=== PATIENT | male | born 1975 | race Caucasian/White ===

== ENCOUNTER 2020-07-18 14:44 | Inpatient (IN) | payer SELFPAY ==
[~2020-07-18] VITALS: Ht 182.9 cm; Wt 76.2 kg
[~2020-07-18 14:44] MED LIST: OMEP40CA13 PO; ONDA4TAB11 PO
--- NOTE | 2020-07-18 14:44 | NUR ---
PT BIB SELF C/O ABDOMINAL DISTENSION. PT IS AAOX4, NOT IN RESPIRATORY DISTRESS, HOOKED TO ETL APPLICATION DEVELOPER, KEPT RESTED AND COMFORTABLE. WILL CONTINUE TO MONITOR.
--- NOTE | 2020-07-18 14:50 | NUR ---
AT BEDSIDE FOR EVAL.
--- NOTE | 2020-07-18 15:40 | NUR ---
IV LINE ESTABLISHED BLOOD DRAWN AND SENT TO LAB.
--- NOTE | 2020-07-18 15:46 | NUR ---
COVID SPECIMEN OBTAINED AND SENT TO LAB.
[2020-07-18 16:15] LABS: BASOPHILS # (AUTO) 0.1 /CMM (0.0-0.2); BASOPHILS % (AUTO) 0.7 % (0.0-2.0); EOSINOPHILS % (AUTO) 0.8 % (0.0-6.0); HEMATOCRIT 34 % (39-51); HEMOGLOBIN 11.5 g/dL (13.5-17.5); LYMPHOCYTES # (AUTO) 1.7 /CMM (0.8-4.8); LYMPHOCYTES % (AUTO) 22.6 % (20.0-44.0); MEAN CORPUSCULAR HGB CONC 34 g/dl (31.0-36.0); MEAN CORPUSCULAR VOLUME 118 fL (80-96); MONOCYTES # (AUTO) 0.7 /CMM (0.1-1.30); MONOCYTES % (AUTO) 9.2 % (2.0-12.0); NEUTROPHILS # (AUTO) 5.1 /CMM (1.8-8.9); NEUTROPHILS % (AUTO) 66.7 % (43.0-81.0); PLATELET COUNT (AUTO) 142 /CMM (150-450); RED BLOOD CELL COUNT(AUTO) 2.85 MIL/uL (4.5-6.0); WHITE BLOOD COUNT (AUTO) 7.7 K/uL (4.3-11.0)
[2020-07-18 16:29] LABS: CALCIUM, SERUM 8.1 mg/dL (8.5-10.1); CREATININE 0.9 mg/dL (0.6-1.3)
[2020-07-18 16:39] LABS: ALBUMIN 2.3 g/dL (3.4-5.0); BILIRUBIN,TOTAL 6.3 mg/dL (0.2-1.0); TOTAL PROTEIN, SERUM 7.4 g/dL (6.4-8.2)
[2020-07-18 16:42] LABS: POTASSIUM 2.8 mmol/L (3.5-5.1)
[2020-07-18 16:43] LABS: ALCOHOL, BLOOD < 10 mg/dL (0-0); MAGNESIUM 1.9 mg/dL (1.8-2.4)
[2020-07-18 16:49] LABS: LYMPHOCYTES % (MANUAL) 21 % (16-48); MONOCYTES % (MANUAL) 2 % (0-11.0); NEUTROPHILS % (MANUAL) 77 (42-76)
[2020-07-18] MEDS ORDERED: POTASSIUM CHLORIDE 20 MEQ TAB.PRT.SR PO ONE ×2 (17:09→17:30)
[2020-07-18] MEDS ORDERED: LORAZEPAM 1 MG TABLET PO PRN (17:30)
[2020-07-18] MEDS ORDERED: MAG HYDROX/AL HYDROX/SIMETH 30 ML UDC PO PRN (17:30)
[2020-07-18] MEDS ORDERED: ONDANSETRON HCL/PF 4 MG/2 ML VIAL IVP PRN (17:30)
[2020-07-18] MEDS ORDERED: MORPHINE SULFATE INJ 2 MG/ML DISP.SYRIN IV PRN (17:30)
[2020-07-18] MEDS ORDERED: MAGNESIUM HYDROXIDE 30 ML UDC PO PRN (17:30)
[2020-07-18] MEDS ORDERED: TEMAZEPAM 15 MG CAPSULE PO PRN (17:30)
--- NOTE | 2020-07-18 17:36 | NUR ---
PER DR. PARKS THE PROCEDURE WILL BE DONE TOMORROW MORNING. RN INFORMED THE ORDERING MD.
--- NOTE | 2020-07-18 17:45 | NUR ---
called nursing sup for m/s bed
--- NOTE | 2020-07-18 18:09 | NUR ---
BED 309-1
--- NOTE | 2020-07-18 18:15 | NUR ---
REPORT GIVEN FRANCIS PEREIRA FOR SHARON.
[2020-07-18 19:30] VITALS: BP 111/71
[2020-07-18 20:16] VITALS: BP 111/71
--- NOTE | 2020-07-19 04:21 | NUR ---
slept thru the night Restoril given prior to sleep and was effective noted abd round soft nontender pt states he came in to have a paracentesis done states he stopped drinking 2 weeks ago denies pain ambulates to the bathroom and is steady on his feet pleasent and cooperative
[2020-07-19 06:56] LABS: BASOPHILS # (AUTO) 0.1 /CMM (0.0-0.2); BASOPHILS % (AUTO) 0.9 % (0.0-2.0); EOSINOPHILS % (AUTO) 2.2 % (0.0-6.0); HEMATOCRIT 31 % (39-51); HEMOGLOBIN 10.7 g/dL (13.5-17.5); LYMPHOCYTES # (AUTO) 1.8 /CMM (0.8-4.8); LYMPHOCYTES % (AUTO) 28.5 % (20.0-44.0); MEAN CORPUSCULAR HGB CONC 35 g/dl (31.0-36.0); MEAN CORPUSCULAR VOLUME 118 fL (80-96); MONOCYTES # (AUTO) 0.6 /CMM (0.1-1.30); MONOCYTES % (AUTO) 9.3 % (2.0-12.0); NEUTROPHILS # (AUTO) 3.7 /CMM (1.8-8.9); NEUTROPHILS % (AUTO) 59.1 % (43.0-81.0); PLATELET COUNT (AUTO) 109 /CMM (150-450); RED BLOOD CELL COUNT(AUTO) 2.61 MIL/uL (4.5-6.0); WHITE BLOOD COUNT (AUTO) 6.2 K/uL (4.3-11.0)
--- NOTE | 2020-07-19 07:29 | NUR ---
MS RN OPENING NOTES PATIENT RECEIVED ON BED ALERT AND ORIENTED X 4 WITH NO SINGS OF DISTRESS. ON MODERATE TO HIGH BACK REST. PATIENT AMBULATORY WITH NO ASSITIVE DEVICE, WITH STEADY GAIT. PATIENT WITH SALINE LOCK ON RIGHT AC [id number], COVERED WITH TEGADERM, PATENT AND INTACT. NO COMPLAINTS OF PAIN OR DISCOMFORT. COMFORT MEASURES PROVIDED. NEEDS ATTENDED. ENCOURAGED TO DO DEEP BREATHING EXERCISES. CALL LIGHT WITHIN REACH AT ALL TIMES. WILL MONITOR CLOSELY
[2020-07-19 07:34] LABS: ALBUMIN 1.9 g/dL (3.4-5.0); BILIRUBIN,DIRECT 2.9 mg/dL (0.0-0.2); BILIRUBIN,TOTAL 5.3 mg/dL (0.2-1.0); CALCIUM, SERUM 7.7 mg/dL (8.5-10.1); CREATININE 0.8 mg/dL (0.6-1.3); MAGNESIUM 1.9 mg/dL (1.8-2.4); PHOSPHORUS 3.1 mg/dL (2.5-4.9); TOTAL PROTEIN, SERUM 6.4 g/dL (6.4-8.2)
[2020-07-19 07:36] LABS: POTASSIUM 2.8 mmol/L (3.5-5.1)
--- NOTE | 2020-07-19 07:49 | NUR ---
MS RN NOTES RECEIVED CALL FROM LAB REGARDING CRITICAL VALUE OF POTASSIUM OF 2.8 MD ON THE UNIT AND MADE AWARE.
[2020-07-19 08:00] VITALS: BP 100/58
[2020-07-19] MEDS ORDERED: ALBUMIN 25% 12.5 GM/50 ML BOTTLE IV ONE (08:00)
[2020-07-19] MEDS: POTASSIUM CL. PREMIX PERIPHER. 50 ML IV SCH ×4 (08:13→13:19)
[2020-07-19] MEDS ORDERED: ALBUMIN 25% 12.5 GM in PREMIX 1 EA IV ONE (08:30)
--- NOTE | 2020-07-19 09:53 | NUR ---
MS RN NOTES PARACENTESIS DONE AT BEDSIDE PER DR PARKS. RLQ 4000 MLS OUT. PER FLUIDS SENT TO LAB.
[2020-07-19] MEDS ORDERED: SPIR100T5 PO (10:31)
--- NOTE | 2020-07-19 13:30 | NUR ---
Social Service Consult: visitor services specialist consult requested for alcohol use. Patient is a 45-year-old, male. SW met with the patient at his hospital bed in the med-surg unit. Patient is alert and oriented x4. Patient is calm and resting. Per patients chart, patient was brought in by self on 07/18/2020 for liver failure. Patient stated that he currently lives with his spouse at [address] [place] [address]. [address], [place] [address]; [phone]. SW assessed patients history of substance use and patient stated that he has a history of alcohol use. Patient stated that he stopped drinking 10 days ago after drinking daily since Covid began. Patient stated that he was previously drinking around 1 pint of Vodka throughout the day. Patient denies any history of drug use. SW assessed if patient has a source of income and patient stated that he is currently employed and has an adequate source of income. Patient stated that he has adequate social support from his spouse, Wen Broderick [phone]. SW assessed patients history of mental illness and patient denies any history of mental illness and denies any current thoughts of suicide or homicide. SW discussed discharge plans with the patient. Patient stated that he plans to return to his prior living arrangement at home and will be picked up by his spouse or boss. SW offered the patient substance abuse resources for alcohol. Patient declined the resources, stating that he is able to control his alcohol use independently. PLAN: Patient stated he will be returning to his prior living arrangement. No further SS interventions at this time, however SW will remain available as needed.
--- NOTE | 2020-07-19 15:26 | NUR ---
MS FLATCAR WHACKER NOTES PATIENT DISCHARGED HOME IN MEDICALLY STABLE CONDITION. PATIENT ON ROOM AIR, A/O X4, ABLE TO MAKE NEEDS KNOWN. ALL DISCHARGE DOCUMENTS READY, TEACHING PROVIDED TO PATIENT REGARDING PHYSICIAN DISCHARGE INSTRUCTIONS. PATIENT VERBALIZED UNDERSTANDING. BELONGINGS ACCOUNTED FOR AND FORM SIGNED BY PATIENT. IV ACCESS WAS REMOVED PRIOR TO PATIENT LEAVING THE FLOOR. PATIENT WAS ACCOMPANIED DOWNSTAIRS BY THE RN. PATIENT PICKED UP BY FRIEND IN A PRIVATE CAR.
== END 2020-07-19 15:10 | disposition home or self-care (01) | DRG 432 ==
LOC: ER 14:46 → MED 18:35
PROVIDERS: ADMIT Nurse Practitioner Acute Care; ATTEND Nurse Practitioner Acute Care
PROC: 0W9G3ZZ Drainage of Peritoneal Cavity, Percutaneous Approach (ICD-10-PCS; principal; 2020-07-19)
DX: K70.31 Alcoholic cirrhosis of liver with ascites (principal); E43 Unspecified severe protein-calorie malnutrition; J90 Pleural effusion, not elsewhere classified; K70.11 Alcoholic hepatitis with ascites; E87.6 Hypokalemia; Y90.0 Blood alcohol level of less than 20 mg/100 ml; F10.20 Alcohol dependence, uncomplicated; Z20.822 Contact with and (suspected) exposure to COVID-19; I10 Essential (primary) hypertension; R74.01 Elevation of levels of liver transaminase levels; D64.9 Anemia, unspecified
CPT/HCPCS: 36415; 76942-TC; 80048-TC; 80053-TC; 80076-TC; 82140-TC; 83735-TC; 84100-TC; 84484-TC; 85025-TC; 85610-TC; 87081-TC; 89051-TC; A4216; C9803; G0378; G0480; J3480; J7050; P9047

== ENCOUNTER 2020-10-09 16:39 | Inpatient (IN) | payer BC ==
[~2020-10-09] VITALS: Ht 180.3 cm; Wt 68.5 kg
[~2020-10-09 16:39] MED LIST changes: -OMEP40CA13 PO; -ONDA4TAB11 PO; +SPIR100T5 PO
--- NOTE | 2020-10-09 17:10 | NUR ---
ABDOMINAL DISTENSION WORST X 1 MONTH. PATIENT A/OX4, BREATHING EVEN AND UNLABORED, NO SOB NOTED. NEEDS ATTENDED. KEPT COMFORTABLE.
[2020-10-09 17:42] LABS: BASOPHILS # (AUTO) 0.1 K/uL (0.0-0.2); EOSINOPHILS % (AUTO) 0.2 % (0.0-6.0); HEMOGLOBIN 7.7 g/dL (13.5-17.5); LYMPHOCYTES # (AUTO) 1.8 K/uL (0.8-4.8); MONOCYTES # (AUTO) 0.8 K/uL (0.1-1.30); NEUTROPHILS # (AUTO) 5.5 K/uL (1.8-8.9); PLATELET COUNT (AUTO) 170 K/uL (150-450)
[2020-10-09 17:45] LABS: BASOPHILS % (AUTO) 0.7 % (0.0-2.0); HEMATOCRIT 22 % (39-51); LYMPHOCYTES % (AUTO) 22.1 % (20.0-44.0); MEAN CORPUSCULAR HGB CONC 35 g/dl (31.0-36.0); MEAN CORPUSCULAR VOLUME 121 fL (80-96); MONOCYTES % (AUTO) 9.5 % (2.0-12.0); NEUTROPHILS % (AUTO) 67.5 % (43.0-81.0); WHITE BLOOD COUNT (AUTO) 8.1 K/uL (4.3-11.0)
[2020-10-09 17:47] LABS: RED BLOOD CELL COUNT(AUTO) 1.83 MIL/uL (4.5-6.0)
[2020-10-09 17:59] LABS: ALBUMIN 1.9 g/dL (3.4-5.0); BILIRUBIN,DIRECT 4.5 mg/dL (0.0-0.2); BILIRUBIN,TOTAL 8.4 mg/dL (0.2-1.0); CALCIUM, SERUM 7.8 mg/dL (8.5-10.1); CREATININE 1.1 mg/dL (0.6-1.3); TOTAL PROTEIN, SERUM 8.8 g/dL (6.4-8.2)
[2020-10-09 18:04] LABS: POTASSIUM 2.4 mmol/L (3.5-5.1)
[2020-10-09 18:28] LABS: LYMPHOCYTES % (MANUAL) 20 % (16-48); MONOCYTES % (MANUAL) 10 % (0-11.0); NEUTROPHILS % (MANUAL) 70 (42-76)
[2020-10-09] MEDS ORDERED: POTASSIUM CL. PREMIX PERIPHER. 200 ML ONE (18:29)
[2020-10-09] MEDS ORDERED: POTASSIUM CHLORIDE 20 MEQ TAB.PRT.SR PO ONE ×2 (18:29→18:30)
[2020-10-09] MEDS: POTASSIUM CL. PREMIX PERIPHER. 50 ML IV SCH ×4 (18:51→22:30)
--- NOTE | 2020-10-09 19:35 | NUR ---
POULTRY FARM WORKER OPENING NOTES: RECEIVED PATIENT IN BED AWAKE, BED IN LOW POSITION, CALL LIGHTS WITHIN REACH NO COMPLAIN OF PAIN AND DISCOMFORT A T THIS TIME, ON TELE MONITORING WITH READING SINUS WITH BBB HR-72, ASYMPTOMATIC STAND UP WITH ASSIST, ON BED URINAL, PATIENT KEPT CLEAN AND DRY, ALL NEEDS MET, WILL CONTINUE TO MONITOR.
[2020-10-09] MEDS ORDERED: Magnesium 1GM/D5W 100ML PREMIX 200 ML IV ONE (19:44)
[2020-10-09] MEDS: Magnesium 1GM/D5W 100ML PREMIX 100 ML IV SCH ×2 (20:15→21:13)
--- NOTE | 2020-10-09 20:17 | NUR ---
TOOK OVER PT CARE. PT AAOX4. DIPIKA STATED DURING COVID HE STARTED TO DRINK A LOT AND WAS TOLD TO COME TO THE ED EVERY TIME HIS STOMACH IS BLOATED FOR A PARACENTESIS. DENIES ANY PAIN AND SOB. REMAINS IN BED 9 ON MONITOR AND PULSE OX. AWARE OF NEED FOR ADMISSION AND AWAITING ACCEPTANCE.
--- NOTE | 2020-10-09 20:28 | NUR ---
PT SAT 91% ON ROOM AIR. DENIES HAVING ANY SOB. WILL PLACED PT ON 2L NC.
[2020-10-09] MEDS ORDERED: Z GUARD REMEDY 2 OZ OINT TP PRN (21:00)
[2020-10-09] MEDS ORDERED: ONDANSETRON HCL/PF 4 MG/2 ML VIAL IVP PRN (21:00)
[2020-10-09] MEDS ORDERED: HYDROCODONE/APAP 5/325MG TABLET PO PRN (21:00)
[2020-10-09] MEDS ORDERED: MAG HYDROX/AL HYDROX/SIMETH 30 ML UDC PO PRN (21:00)
[2020-10-09] MEDS ORDERED: ACETAMINOPHEN 325 MG TABLET PO PRN (21:00)
[2020-10-09] MEDS ORDERED: MAGNESIUM HYDROXIDE 30 ML UDC PO PRN (21:00)
--- NOTE | 2020-10-09 23:54 | NUR ---
REPORT GIVEN TO LISA BLANCO FOR SHARON
--- NOTE | 2020-10-10 00:09 | NUR ---
PT TRANSFERED PER ACLS PROTCOL
[2020-10-10] MEDS ORDERED: ALBUTEROL FS 2.5 MG/0.5 ML VIAL.NEB NEB PRN ×3 (00:30)
[2020-10-10] MEDS ORDERED: IPRATROPIUM BROMIDE 14 GM INHALER (or 12.9 GM) IH PRN ×3 (00:30)
--- NOTE | 2020-10-10 00:33 | NUR ---
TLE RN ADMITTING NOTES: RECEIVED PATIENT VIA ALFREDO LIEBERMAN, NO COMPLAIN OF PAIN AND DISCOMFORT, AT THIS TIME, BED IN LOW POSITION, CALL LIGHTS WITHIN REACH, NO SKIN ISSUES NOTED DURING ASSESSMENT, ON TELE MONITORING WITH READING OF SR HR 94, PATIENT PLACE IN BED COMFORTABLY, ALL NEEDS MET WILL CONTINUE TO MONITOR.
[2020-10-10] MEDS ORDERED: FUROSEMIDE 20 MG/2 ML VIAL IV ONE (02:30)
[2020-10-10 05:32] VITALS: BP 105/84
[2020-10-10 06:15] LABS: CALCIUM, SERUM 7.6 mg/dL (8.5-10.1); CREATININE 1.1 mg/dL (0.6-1.3)
[2020-10-10 06:23] LABS: THYROID STIMULATING HORMONE 3.051 uIU/mL (0.358-3.74)
[2020-10-10 06:25] LABS: BASOPHILS % (AUTO) 0.6 % (0.0-2.0); EOSINOPHILS % (AUTO) 0.7 % (0.0-6.0); HEMATOCRIT 21 % (39-51); HEMOGLOBIN 7.2 g/dL (13.5-17.5); LYMPHOCYTES # (AUTO) 1.7 K/uL (0.8-4.8); LYMPHOCYTES % (AUTO) 30.5 % (20.0-44.0); MEAN CORPUSCULAR HGB CONC 35 g/dl (31.0-36.0); MEAN CORPUSCULAR VOLUME 121 fL (80-96); MONOCYTES # (AUTO) 0.6 K/uL (0.1-1.30); MONOCYTES % (AUTO) 11.7 % (2.0-12.0); NEUTROPHILS # (AUTO) 3.1 K/uL (1.8-8.9); NEUTROPHILS % (AUTO) 56.5 % (43.0-81.0); PLATELET COUNT (AUTO) 136 K/uL (150-450); WHITE BLOOD COUNT (AUTO) 5.5 K/uL (4.3-11.0)
--- NOTE | 2020-10-10 06:30 | NUR ---
RN NOTES 2ND BAG OF FFP FINISHED, VITAL SIGN STABLE, PATIENT DENIES ANY REACTION, DENIES PAIN, NO SOB, MORNING CARE RENDERED, CALL LIGHT WITHIN LEONCIO JAIMES, PT. NEEDS ATTENDED Addendum: 10/11/20 at 0641 by NAT VILLASENOR RN RIGHT DATE TIME 10/11/20 AT 0630
[2020-10-10] MEDS ORDERED: IPRATROPIUM NEB FS 0.5 MG/2.5 ML AMPUL.NEB IH PRN (07:00)
[2020-10-10 07:10] LABS: POTASSIUM 2.7 mmol/L (3.5-5.1)
--- NOTE | 2020-10-10 07:30 | NUR ---
TOUR GUIDE OPENING NOTES PT AWAKE IN BED, A/O X4, ABLE TO VERBALIZE NEEDS. DENIES ANY PAIN OR DISCOMFORT AT THIS TIME. NOTED IV ACCESS TO R-HAND #20 AND R-FA #20, BOTH INTACT AND PATENT AND FLUSHES WELL. ON EXTERNAL THERMAL SPRAY OPERATOR CURRENTLY READING ST @106BPM. PT DENIES ANY CARDIAC DISTRESS. SAFETY MEASURES MAINTAINED: BED IN LOWEST LOCKED POSITION, SR UP X2, CALL LIGHT AND BEDSIDE TABLE WITH EASY REACH. WILL CONTINUE TO MONITOR.
--- NOTE | 2020-10-10 07:43 | NUR ---
DECK ENGINEER CLOSING NOTES: PATIENT IS AWAKE IN BED, BED IN LOW POSITION, CALL LIGHTS WITHIN REACH, NO COMPLAIN OF PAIN AND DISCOMFORT AT THIS TIME, A/O X4 NO SOB NOTED, ALL NEEDS ATTENDED, KEPT CLEAN AND DRY, ENDORSE AUDERY INCOMING SHIFT.
[2020-10-10 08:00] VITALS: BP 96/59
--- NOTE | 2020-10-10 08:00 | NUR ---
RN NOTES RECEIVED CALL FROM ESTIMATING ENGINEER [facility] FOR PT CRITICAL LAB RESULT: POTASSIUM 2.7 AND LOW PHOSPHORUS 1.0. REPORTED TO DR. MARMOLEJO WITH ORDER TO GIVE POTASSIUM PHOSPHATE 15MMOL. ORDER CARRIED OUT.
[2020-10-10] MEDS: SPIRONOLACTONE 25 MG TABLET PO SCH (08:16)
[2020-10-10] MEDS: RIFAXIMIN 550 MG TABLET PO SCH ×2 (08:16→17:07)
[2020-10-10] MEDS: PANTOPRAZOLE 40 MG VIAL IV SCH (08:17)
[2020-10-10] MEDS ORDERED: ALBUMIN 25% 25 GM in PREMIX 1 EA IV SCH (09:00)
[2020-10-10] MEDS: POTASSIUM PHOSPHATE MM 7.5 MMOL in IV NS 0.9% 100 ML IV SCH ×4 (09:02→18:47)
--- NOTE | 2020-10-10 10:00 | NUR ---
RN NOTE SEEN AND EXAMINED BY DR. MARMOLEJO. MD WILL PUT IN ORDERS FOR PT.
--- NOTE | 2020-10-10 10:45 | NUR ---
RN NOTE CALLED ULTRASOUND DEPT RE PT FOR PARACENTESIS TODAY PER DR. MARMOLEJO. SPOKE WITH FIREWALL ENGINEER ERIC, PT'S INR IS HIGH 2.36. MADE AWARE WITH ORDER TO CANCEL PARACENTESIS TODAY, WITH ORDERS VIT.K INJ AND FFP TODAY. ORDERS NOTED.
[2020-10-10] MEDS ORDERED: PHYTONADIONE INJ 10 MG/1 ML AMPUL IM STA (11:01)
--- NOTE | 2020-10-10 11:49 | NUR ---
RN NOTE COLLECTED STOOL SPECIMEN FOR: OVA & PARASITE EXAM, CULTURE, AND C-DIFF. SPECIMEN BROUGHT TO LAB. Addendum: 10/10/20 at 1153 by ELLIE MANI RN DOCUMENTED ON WRONG PT
--- NOTE | 2020-10-10 14:53 | NUR ---
INFORMED RN MALENA INR IS ELEVATED FOR US PARACENTESIS TODAY, RN WILL ORDER NEW INR TOMORROW.
--- NOTE | 2020-10-10 15:55 | NUR ---
RECEIVED CALL FROM BLOOD BANK SAYING THEY HAVE NON-TYPE SPECIFIC PLASMA. AVAILABLE IS A-NEG PLASMA, PT IS O-NEG. INFORMED DR. MARMOLEJO IF HE IS OK WITH NON-TYPE SPECIFIC PLASMA. SAID HE IS NOT OK WITH IT. SPOKE TO HEMA @BLOOD BANK AND THEY WILL OBTAIN IT FROM [facility]. AWARE AND IS OK WITH IT.
[2020-10-10 16:00] VITALS: BP 105/58
[2020-10-10 16:25] LABS: HEMOGLOBIN 6.8 g/dL (13.5-17.5)
--- NOTE | 2020-10-10 16:29 | NUR ---
RECEIVED CRITICAL LAB RESULT OF H&H 6.8 AND HCT 20. CALLED TO DR. MARMOLEJO AND AWAITING CALL BACK.
[2020-10-10 16:44] LABS: ALBUMIN 1.6 g/dL (3.4-5.0); BILIRUBIN,TOTAL 5.4 mg/dL (0.2-1.0); CALCIUM, SERUM 7.4 mg/dL (8.5-10.1); TOTAL PROTEIN, SERUM 7.6 g/dL (6.4-8.2)
[2020-10-10] MEDS: POTASSIUM CL. PREMIX PERIPHER. 50 ML IV SCH ×2 (18:09→19:22)
--- NOTE | 2020-10-10 18:45 | NUR ---
RN NOTES DR. MARMOLEJO ORDERED PRBC X1 STAT. ORDER NOTED AND WILL ENDORSE TO NEXT SHIFT.
--- NOTE | 2020-10-10 19:12 | NUR ---
LICENSED LOAN OFFICER CLOSING NOTES PT IN BED, A/O X4, ABLE TO VERBALIZE NEEDS. ON O2 @2LPM VIA N/C AND TOLERATING WELL. IV ACCESS TO R-FA #20 AND R-HAND #20 INTACT, PATENT AND FLUSHES WELL. ON EXTERNAL COMMUNICATIONS REPRESENTATIVE CURRENTLY READING ST 107. PT DENIES ANY CARDIAC DISTRESS. SAFETY MEASURES MAINTAINED: BED IN LOWEST LOCKED POSITION, SR UP X2, CALL LIGHT AND BEDSIDE TABLE WITHIN EASY REACH. PT'S AT BEDSIDE.
[2020-10-10 20:00] VITALS: BP 107/70
--- NOTE | 2020-10-10 20:45 | NUR ---
FRANCIS GRAY RECEIVED PATIENT AWAKE ON HIS BED, GIRLFRIEND AT BEDSIDE,A/OX4 SR ON TELE MONITOR HR-89. NOTICED ABDOMINAL DISTENDED, DENEIS PAIN NO SOB, CALL LIGHT WITHIN REACH, [id number], WILL CONTINUE TO MONIRO
[2020-10-10 23:10] VITALS: BP 104/67
--- NOTE | 2020-10-10 23:13 | NUR ---
RN NOTES PRBC STARTED, VITAL SIGN STABLE, WILL CONTINUE TO MONITOR
[2020-10-10 23:25] VITALS: BP 107/67
[2020-10-11] VITALS (14 sets, daily range): BP systolic 95–106; BP diastolic 53–66
--- NOTE | 2020-10-11 02:10 | NUR ---
RN NOTES FFP STARTED, WILL CONTINUE TO MONITOR
--- NOTE | 2020-10-11 02:30 | NUR ---
RN NOTES NO REACTION WAS NOTED FROM FFP, WILL CONTINUE TO MONITOR
--- NOTE | 2020-10-11 04:05 | NUR ---
RN NOTES FFP WAS FINISHED, V/S STABLE
--- NOTE | 2020-10-11 06:30 | NUR ---
RN NOTES 2ND BAG OF FFP FINISHED, VITAL SIGN STABLE, PATIENT DENIES ANY REACTION, DENIES PAIN, NO SOB, MORNING CARE RENDERED, CALL LIGHT WITHIN DELILAH [id number], PT. NEEDS ATTENDED
--- NOTE | 2020-10-11 07:30 | NUR ---
BOTTLE LINE WORKER OPENING NOTES PATIENT AWAKE IN BED, AWAKE AND ORIENTED, ABLE TO VERBALIZE NEEDS WITH NO COMPLAINT OF PAIN OR ANY DISCOMFORT AT THIS TIME. WITH IV ACCESS AT R -HAND #20 AND R-FA #20, BOTH INTACT AND PATENT AND FLUSHES WELL. ON EXTERNAL SURGICAL NURSE PRACTITIONER CURRENTLY READING NSR AT 96 BPM. NOT IN CARDIAC DISTRESS. SAFETY MEASURES MAINTAINED. BED IN LOWEST LOCKED POSITION, SR UP X2, CALL LIGHT WITHIN REACH. WILL CONTINUE TO MONITOR.
[2020-10-11] MEDS ORDERED: FUROSEMIDE 40 MG TABLET PO SCH (09:00)
[2020-10-11] MEDS: POTASSIUM PHOSPHATE MM 7.5 MMOL in IV NS 0.9% 100 ML IV SCH ×2 (09:24→12:44)
[2020-10-11] MEDS: PANTOPRAZOLE 40 MG VIAL IV SCH (09:25)
[2020-10-11] MEDS: RIFAXIMIN 550 MG TABLET PO SCH ×2 (09:25→17:21)
[2020-10-11] MEDS: SPIRONOLACTONE 25 MG TABLET PO SCH (09:25)
[2020-10-11 11:26] LABS: ALBUMIN 1.7 g/dL (3.4-5.0); BILIRUBIN,TOTAL 6.4 mg/dL (0.2-1.0); CALCIUM, SERUM 7.6 mg/dL (8.5-10.1); CREATININE 0.9 mg/dL (0.6-1.3); TOTAL PROTEIN, SERUM 7.5 g/dL (6.4-8.2)
[2020-10-11 11:27] LABS: HEMOGLOBIN 7.2 g/dL (13.5-17.5)
[2020-10-11 11:57] LABS: IRON, SERUM 82 ug/dl (50-175); TOTAL IRON BINDING CAPACITY 119 ug/dl (250-450)
[2020-10-11] MEDS ORDERED: PHYTONADIONE INJ 10 MG/1 ML AMPUL SQ STA (12:11)
--- NOTE | 2020-10-11 12:34 | NUR ---
CONSTRUCTION FOREMAN NOTES DR. KOHLI INFORMED OF PT'S LATEST LABS, ORDERED TO TRANSFUSE 2 MORE PLASMAS.
[2020-10-11 12:53] LABS: FERRITIN 1612 ng/mL (8-388)
[2020-10-11] MEDS: ALBUMIN 25% 25 GM in PREMIX 1 EA IV SCH ×2 (14:00→19:27)
[2020-10-11] MEDS ORDERED: FURO40TA5 PO (14:58)
[2020-10-11] MEDS ORDERED: PANT40TA2 PO (14:58)
[2020-10-11] MEDS ORDERED: SPIR100T5 PO (14:58)
[2020-10-11 16:33] LABS: ALBUMIN 1.9 g/dL (3.4-5.0); BILIRUBIN,TOTAL 6.9 mg/dL (0.2-1.0); CALCIUM, SERUM 7.6 mg/dL (8.5-10.1); POTASSIUM 3.4 mmol/L (3.5-5.1); TOTAL PROTEIN, SERUM 7.5 g/dL (6.4-8.2)
--- NOTE | 2020-10-11 16:41 | NUR ---
POWDERED SUGAR PULVERIZER OPERATOR NOTES RECEIVED RESULT OF LATEST H/H 7., RELAYED TO DR. AQUINO, ORDERED TO GIVE 1 UNIT PRBC BEFORE DISCHARGE., PT INFORMED AND AGREED WITH PLAN, NO BLEEDING NOTED, PT STATES THAT HE REALLY WANTS TO GO HOME AFTER TRANSFUSION AND HE FEELS OK.
--- NOTE | 2020-10-11 17:30 | NUR ---
MANAGER MUSIC OPENING NOTES: RECEIVED PATIENT AWAKE IN BED, BED IN LOW POSITION, CALL LIGHTS WITHIN REACH, NO COMPLAIN OF PAIN AND DISCOMFORT, NO SOB OR ANY RESP. DISTRESS NOTED, ON TELE MONITORING, NO CHANGES HAS BEEN OBSERVED. PATIENT DUE TO BE GIVEN WITH 1 PRBC, KEPT CLEAN AND DRY, WILL CONTINUE TO MONITOR.
--- NOTE | 2020-10-11 19:01 | NUR ---
METAL CRAFTS TEACHER NOTES PT IN BED, RESTING, DENIES PAIN OR ANY DISCOMFORT, RESPIRATIONS NORMAL, STATES HE IS FEELING OK TO GO HOME, ALBUMIN GIVEN ORDERED, PT TO BE DISCHARGED AFTER 1 UNIT PRBC, PM MEDS GIVEN, TOLERATES CURRENT DIET, ALL NEEDS ATTENDED.
[2020-10-12] VITALS: BP 100/65
--- NOTE | 2020-10-12 01:03 | NUR ---
RN NOTES: TRANSFUSES 1 BAG LRBC WITH NO S/E NOTED
--- NOTE | 2020-10-12 01:53 | NUR ---
SENIOR PRODUCT MANAGERMEDICAL ASSOCIATE NOTE: PATIENT WENTON SCHEDULE D/C TO HOME AFTER BLOOD TRANSFUSIION , TRANSPORTATION WAS VIA UBER, WAS MADE AWARE ON STABLE CONDITION, D/C PAPER GIVEN, EXPPLAINED, ALL INVENTORIES GIVEN AND SIGNED WENT DOWN TO LOBBY AT 0135 AM ON STABLE CONDITION.
[2020-10-12] MEDS ORDERED: PANTOPRAZOLE 40 MG TABLET.DR PO SCH (07:30)
== END 2020-10-12 01:25 | disposition home or self-care (01) | DRG 432 ==
LOC: ER 16:40 → TELE 23:50
PROVIDERS: ADMIT Registered Nurse; ATTEND Internal Medicine
PROC: 30233N1 Transfusion of Nonautologous Red Blood Cells into Peripheral Vein, Percutaneous Approach (ICD-10-PCS; 2020-10-10)
PROC: 0W9G3ZZ Drainage of Peritoneal Cavity, Percutaneous Approach (ICD-10-PCS; principal; 2020-10-11)
PROC: 30233K1 Transfusion of Nonautologous Frozen Plasma into Peripheral Vein, Percutaneous Approach (ICD-10-PCS; 2020-10-11)
DX: K70.31 Alcoholic cirrhosis of liver with ascites (principal); E43 Unspecified severe protein-calorie malnutrition; J91.8 Pleural effusion in other conditions classified elsewhere; D68.69 Other thrombophilia; E83.42 Hypomagnesemia; E87.6 Hypokalemia; E88.09 Other disorders of plasma-protein metabolism, not elsewhere classified; Z68.21 Body mass index [BMI] 21.0-21.9, adult; D69.6 Thrombocytopenia, unspecified; D63.8 Anemia in other chronic diseases classified elsewhere; Z20.822 Contact with and (suspected) exposure to COVID-19; F10.21 Alcohol dependence, in remission
CPT/HCPCS: 36415; 71045-TC; 76705-TC; 76942-TC; 80048-TC; 80053-TC; 80061-TC; 80076-TC; 82140-TC; 82728-TC; 83540-TC; 83690-TC; 83735-TC; 84100-TC; 84443-TC; 85025-TC; 85027-TC; 85610-TC; 85730-TC; 86850-TC; 87081-TC; 88108-TC; 88305-TC; A4216; C9113; C9803; G0378; J1940; J3430; J3475; J3480; J3490; J7030; J7050; P9016; P9017; P9047

== ENCOUNTER 2020-11-23 19:39 | Inpatient (IN) | payer BC ==
[~2020-11-23] VITALS: Ht 182.9 cm; Wt 75.3 kg
[~2020-11-23 19:39] MED LIST changes: +FURO40TA5 PO; +PANT40TA2 PO
--- NOTE | 2020-11-23 19:50 | NUR ---
PT PROVIDED WITH WARM BLANKETS.
--- NOTE | 2020-11-23 19:50 | NUR ---
PT [id number] FROM HOME WITH C/O "MY L EYE WAS SEEING LORA, NOW TODAY IT IS ALL BLACK AND I CAN'T SEE ANYTHING", ALSO DRY MOUTH, DENIES PAIN." PT SKIN PRESENTS JAUNDICE. ALERT AND ORIENTED X3 WITH NON LABORED BREATHING.
--- NOTE | 2020-11-23 20:49 | NUR ---
Ryan steward in [facility] - 11/23/20 at 2100 by DAISY ULTRASOUND @ BEDSIDE.
[2020-11-23 21:00] LABS: BASOPHILS # (AUTO) 0.1 K/uL (0.0-0.2); BASOPHILS % (AUTO) 0.5 % (0.0-2.0); EOSINOPHILS % (AUTO) 0.3 % (0.0-6.0); LYMPHOCYTES # (AUTO) 1.1 K/uL (0.8-4.8); LYMPHOCYTES % (AUTO) 10.2 % (20.0-44.0); MEAN CORPUSCULAR HGB CONC 33 g/dl (31.0-36.0); MEAN CORPUSCULAR VOLUME 140 fL (80-96); MONOCYTES % (AUTO) 9.2 % (2.0-12.0); NEUTROPHILS % (AUTO) 79.8 % (43.0-81.0); PLATELET COUNT (AUTO) 171 K/uL (150-450); WHITE BLOOD COUNT (AUTO) 11.2 K/uL (4.3-11.0)
[2020-11-23 21:01] LABS: RED BLOOD CELL COUNT(AUTO) 0.86 MIL/uL (4.5-6.0)
[2020-11-23 21:02] LABS: HEMATOCRIT 12 % (39-51)
[2020-11-23 21:05] LABS: BILIRUBIN,DIRECT 13.8 mg/dL (0.0-0.2); BILIRUBIN,TOTAL 21.5 mg/dL (0.2-1.0); CALCIUM, SERUM 8.7 mg/dL (8.5-10.1); CREATININE 3.2 mg/dL (0.6-1.3); TOTAL PROTEIN, SERUM 8.3 g/dL (6.4-8.2)
[2020-11-23 21:07] LABS: ALBUMIN 1.4 g/dL (3.4-5.0); POTASSIUM 2.6 mmol/L (3.5-5.1)
--- NOTE | 2020-11-23 21:07 | NUR ---
POTASSIUM: 2.6 ALBUMIN 1.4 MD NOTIFIED.
[2020-11-23 21:08] LABS: THYROID STIMULATING HORMONE 2.732 uIU/mL (0.358-3.74)
--- NOTE | 2020-11-23 21:18 | NUR ---
called the medical center. longwall shearer operator was paged
--- NOTE | 2020-11-23 21:20 | NUR ---
[facility] ( SIGNIFICANT OTHER) [phone]
[2020-11-23] MEDS ORDERED: IV PREMIX D5 1/2NS + KCL 1,000 ML IV ONE ×2 (21:28→21:30)
--- NOTE | 2020-11-23 21:30 | NUR ---
MRSA SWAB COLLECTED AND SENT TO LAB. PATIENT'S BELONGINGS LIST DONE.
[2020-11-23 21:47] LABS: BAND % (MANUAL) 2 % (0.0-5.0); LYMPHOCYTES % (MANUAL) 8 % (16-48); MONOCYTES % (MANUAL) 6 % (0-11.0); NEUTROPHILS % (MANUAL) 83 (42-76); REACTIVE LYMPHOCYTES 1 % (0-0)
--- NOTE | 2020-11-23 22:56 | NUR ---
PATIENT GOING TO CT.
[2020-11-23] MEDS ORDERED: ACETAMINOPHEN 325 MG TABLET PO PRN (23:00)
[2020-11-23] MEDS ORDERED: ZOLPIDEM TARTRATE 5 MG TABLET PO PRN (23:00)
[2020-11-23] MEDS ORDERED: Z GUARD REMEDY 2 OZ OINT TP PRN (23:00)
--- NOTE | 2020-11-23 23:10 | NUR ---
returned from ct
[2020-11-24] VITALS (21 sets, daily range): BP systolic 86–114; BP diastolic 45–69
[2020-11-24] MEDS ORDERED: ONDANSETRON HCL/PF 4 MG/2 ML VIAL ONE (02:51)
[2020-11-24] MEDS: ONDANSETRON HCL/PF 4 MG/2 ML VIAL IVP PRN ×2 (03:00→15:07)
[2020-11-24] MEDS: IV NS 0.9% 1,000 ML IV PRN ×2 (03:00→21:02)
[2020-11-24 05:39] LABS: BASOPHILS # (AUTO) 0.1 K/uL (0.0-0.2); EOSINOPHILS % (AUTO) 0.7 % (0.0-6.0); MONOCYTES # (AUTO) 0.9 K/uL (0.1-1.30); WHITE BLOOD COUNT (AUTO) 10.4 K/uL (4.3-11.0)
[2020-11-24 05:42] LABS: BASOPHILS % (AUTO) 0.7 % (0.0-2.0); LYMPHOCYTES % (AUTO) 9.3 % (20.0-44.0); MEAN CORPUSCULAR HGB CONC 35 g/dl (31.0-36.0); MEAN CORPUSCULAR VOLUME 119 fL (80-96); MONOCYTES % (AUTO) 8.6 % (2.0-12.0); NEUTROPHILS # (AUTO) 8.4 K/uL (1.8-8.9); NEUTROPHILS % (AUTO) 80.7 % (43.0-81.0); PLATELET COUNT (AUTO) 158 K/uL (150-450)
[2020-11-24 05:43] LABS: RED BLOOD CELL COUNT(AUTO) 1.15 MIL/uL (4.5-6.0)
[2020-11-24 05:45] LABS: HEMATOCRIT 14 % (39-51); HEMOGLOBIN 4.8 g/dL (13.5-17.5)
--- NOTE | 2020-11-24 05:45 | NUR ---
HEMOGLOBIN 4.8 HEMATOCRIT: 14 MD NOTIFIED
[2020-11-24 05:47] LABS: ALANINE AMINOTRANSFERASE 14 U/L (12-78); ALKALINE PHOSPHATASE 67 U/L (46-116); ASPARTATE AMINOTRANSFERASE 31 U/L (15-37); BILIRUBIN,TOTAL 19.4 mg/dL (0.2-1.0); CARBON DIOXIDE 32 mmol/L (21-32); CHLORIDE 92 mmol/L (98-107); GLUCOSE 123 mg/dL (74-106); PHOSPHORUS 3.4 mg/dL (2.5-4.9); SODIUM SERUM 132 mmol/L (136-145); TOTAL PROTEIN, SERUM 7.4 g/dL (6.4-8.2); UREA NITROGEN, BLOOD 51 mg/dL (7-18)
[2020-11-24 05:56] LABS: MAGNESIUM 2.1 mg/dL (1.8-2.4)
[2020-11-24 05:58] LABS: ALBUMIN 1.3 g/dL (3.4-5.0); POTASSIUM 2.8 mmol/L (3.5-5.1)
[2020-11-24 06:38] LABS: BAND % (MANUAL) 1 % (0.0-5.0); LYMPHOCYTES % (MANUAL) 8 % (16-48); METAMYELOCYTES % 1 % (0-0); MONOCYTES % (MANUAL) 8 % (0-11.0); MYELOCYTES % 1 % (0-0); NEUTROPHILS % (MANUAL) 81 (42-76)
[2020-11-24 06:39] LABS: HDL CHOLESTEROL 14 mg/dL (40-60); LDL 20 mg/dL (0-99); THYROID STIMULATING HORMONE 2.067 uIU/mL (0.358-3.74); TRIGLYCERIDES 54 mg/dL (30-150)
--- NOTE | 2020-11-24 06:44 | NUR ---
attempted to give report, request denied.
--- NOTE | 2020-11-24 07:17 | NUR ---
report given to damián Monroy
[2020-11-24 07:48] LABS: CHOLESTEROL < 50 mg/dL (<200)
--- NOTE | 2020-11-24 08:15 | NUR ---
TELE ADMISSION NOTES RECEIVED ADMISSION FROM ER BROUGHT BY IDALIA, ER NURSE AND ONE ER STAFF MEMBER. PATIENT IS ALERT AND ORIENTED X 2-3, VERY WEAK WITH JAUNDICE APPEARANCE. BREATHING IS EVEN AND UNLABORED. NO SOB. NO C/O PAIN AT THIS TIME. ORIENTED PATIENT TO UNIT, STAFF AND CALL LIGHT. IV ACCESS LAC#18 AND RAC#18 PATENT INTACT. ORDERS RECEIVED FROM MD AND WILL CARRY OUT. SAFETY MEASURES IN PLACE WITH BED LOCKED AT LOW POSITION AND SIDE RAILS UP X2. WILL CONTINUE TO MONITOR PATIENT THROUGHOUT SHIFT.
--- NOTE | 2020-11-24 08:16 | NUR ---
The patient is transfered to room 321 in stable condition and per ACLS policy.
[2020-11-24 08:33] LABS: IRON, SERUM 111 ug/dl (50-175); TOTAL IRON BINDING CAPACITY 109 ug/dl (250-450)
[2020-11-24] MEDS: FOLIC ACID 1 MG TABLET PO SCH (08:35)
[2020-11-24] MEDS: THIAMINE HCL 100 MG TABLET PO SCH (08:35)
[2020-11-24] MEDS ORDERED: FAMOTIDINE (20 MG) 20 MG TABLET PO SCH (09:00)
[2020-11-24] MEDS ORDERED: SPIR100T PO (10:09)
[2020-11-24] MEDS ORDERED: PANT40TA2 PO (10:09)
[2020-11-24] MEDS ORDERED: POTA99TA14 PO (10:09)
[2020-11-24] MEDS ORDERED: CHOL100062 PO (10:09)
[2020-11-24] MEDS ORDERED: FURO-144 PO (10:09)
[2020-11-24] MEDS ORDERED: PANTOPRAZOLE 40 MG VIAL IV SCH (11:30)
[2020-11-24] MEDS: POTASSIUM CL. PREMIX PERIPHER. 50 ML IV SCH ×6 (11:30→16:09)
--- NOTE | 2020-11-24 11:55 | NUR ---
INSPECTOR WIRE PRODUCTS NOTES BLOOD TRANSFUSION 1 OF 2 STARTED
[2020-11-24] MEDS ORDERED: OCTREOTIDE 50 MCG in IV NS 0.9% 50 ML IJ ONE (14:30)
[2020-11-24] MEDS: OCTREOTIDE 1,250 MCG in IV NS 0.9% 247.5 ML IV PRN ×2 (15:18→20:33)
--- NOTE | 2020-11-24 15:53 | NUR ---
BUSINESS AREA MANAGER NOTES 2 OUT OF 2 PRBC STARTED AT THIS TIME. PATIENT HAD ONE EPISODE OF VOMIT AFTER PREVIOUS BLOOD TRANSFUSION ENDED. ZOFRAN GIVEN, SYMPTOMS IMPROVED.
[2020-11-24] MEDS: PANTOPRAZOLE 40 MG VIAL IV SCH (16:44)
--- NOTE | 2020-11-24 18:11 | NUR ---
MEDICAL STAFF CREDENTIALING COORDINATORCURRICULUM DEVELOPMENT COORDINATOR NOTES TRANSFERRED PATIENT TO ICU. PATIENT VOMITED DURING THRID TRANSFUSION (SINCE ADMISSION). PATIENT WEAK BUT RESPONDS TO VERBAL STIMULI AND TOUCH. SANDOSTATIN AT 50 ML/HR INFUSING. GAVE REPORT TO GABRIELA, CHARGE NURSE ICU.
--- NOTE | 2020-11-24 18:15 | NUR ---
MANAGER ASSET MANAGEMENT RECEIVED PT FROM TELE BY MIO WITH MONITOR. PT AROUSEABLE TO NAME, WEAK. PRBC (3RD SINCE ADMISSION) INFUSING. SANDOSTATIN AT 50 ML/HR INFUSING. PT SCHEDULED FOR EMERGENCY EGD.
[2020-11-24] MEDS: PIPERACILLIN /TAZOBACTAM 2.25 G in IV D5W 50 ML IV SCH (18:16)
--- NOTE | 2020-11-24 18:50 | NUR ---
FRAME TENDER PT TO OR FOR EGD. EMERGENCY CONSENTS. NO FAMILY AVAILABLE AT THIS TIME. PT ENCEPHALOPATHIC. COMPLETED TRANSFUSIONS. AWAITING FOLLOW UP LABS.
[2020-11-24 19:02] LABS: BASOPHILS % (AUTO) 0.5 % (0.0-2.0); EOSINOPHILS % (AUTO) 0.3 % (0.0-6.0); LYMPHOCYTES # (AUTO) 0.8 K/uL (0.8-4.8); LYMPHOCYTES % (AUTO) 8.7 % (20.0-44.0); MEAN CORPUSCULAR HGB CONC 35 g/dl (31.0-36.0); MEAN CORPUSCULAR VOLUME 110 fL (80-96); MONOCYTES # (AUTO) 0.7 K/uL (0.1-1.30); MONOCYTES % (AUTO) 7.6 % (2.0-12.0); NEUTROPHILS # (AUTO) 7.3 K/uL (1.8-8.9); NEUTROPHILS % (AUTO) 82.9 % (43.0-81.0); PLATELET COUNT (AUTO) 144 K/uL (150-450); WHITE BLOOD COUNT (AUTO) 8.8 K/uL (4.3-11.0)
[2020-11-24] MEDS ORDERED: SUCCINYLCHOLINE CHLORIDE 20 MG/ML VIAL ONE (19:11)
[2020-11-24 19:15] LABS: HEMOGLOBIN 6.6 g/dL (13.5-17.5)
[2020-11-24 19:16] LABS: HEMATOCRIT 19 % (39-51)
[2020-11-24] MEDS ORDERED: CEFTRIAXONE 1 G VIAL IM SCH (19:30)
[2020-11-24 19:33] LABS: BAND % (MANUAL) 1 % (0.0-5.0); LYMPHOCYTES % (MANUAL) 10 % (16-48); MONOCYTES % (MANUAL) 4 % (0-11.0); NEUTROPHILS % (MANUAL) 85 (42-76)
--- NOTE | 2020-11-24 19:58 | NUR ---
RN NOTES, PATIENT RETURNED FROM EDG PROCEDURE, STILL IN RECUPERATION, OPERATION ROOM NURSE AND ANESTHESIOLOGIST IN THE ROOM WITH PATIENT.
--- NOTE | 2020-11-24 20:20 | NUR ---
RN NOTES, WITH ORDER FROM DR CORNEJO TO CONTINUE PREVIOUS MEDICATIONS.
[2020-11-24] MEDS ORDERED: OCTREOTIDE 500 MCG/ML VIAL ONE (20:23)
--- NOTE | 2020-11-24 20:29 | NUR ---
rn notes, received report from Kezia Rn nurse, patient on simple mask at 5lpm, bp 90s at this time, will call md for orders since hg still 6.6, will cont to monitor closely, s/p EDG with banding x7, no active bleeding noted.
--- NOTE | 2020-11-24 20:50 | NUR ---
RN NOTES, INFORMED MOJGAN FRIAS DNP THAT THE LAST RESULT FOR H&H IS 6.6 AND HE REPLIED WITH ORDER TO TRANSFUSE ANOTHER UNIT OF PRBC, ORDER NOTED AND CARRIED OUT, NOTED ALSO SBP 80-90 AND HE STATED THAT BLOOD WILL IMPROVE AND LONG MAP IS >65, WILL BE GOOD, AWAITING FOR BLOOD FROM LAB. WILL INFUSE ORDERED.
--- NOTE | 2020-11-24 20:59 | NUR ---
RN NOTES, VERIFIED ORDER FOR IM CEFTRIAXONE WITH DR VARGAS AND PER HIM ADMINISTER IV, ORDER NOTED AND CARRIED OUT. Addendum: 11/25/20 at 0034 by ERIC DEUTSCH RN WRONG ENTRY
--- NOTE | 2020-11-24 20:59 | NUR ---
RN NOTES, VERIFIED ORDER FOR IM CEFTRIAXONE WITH DR CORNEJO AND PER HIM ADMINISTER IV, ORDER NOTED AND CARRIED OUT.
[2020-11-24] MEDS ORDERED: CEFTRIAXONE 1 G VIAL ONE (21:16)
[2020-11-24] MEDS: CEFTRIAXONE 1 G in IV D5W 50 ML IV SCH (21:19)
[2020-11-25] VITALS (73 sets, daily range): BP systolic 79–113; BP diastolic 45–71
[2020-11-25] MEDS: PIPERACILLIN /TAZOBACTAM 2.25 G in IV D5W 50 ML IV SCH ×3 (00:09→12:02)
--- NOTE | 2020-11-25 01:50 | NUR ---
RN NOTES, DONE WITH THE ADMINISTRATION OF BLOOD, PATIENT TOLERATED WELL, NO S/S OF ANY ALLERGIC REACTION OR ABNORMALITY, BLOOD PRESSURE CONTINUE IN 90S AT THIS TIME, BUT KEEPING THE MAP >65, WILL CONTINUE TO MONITOR CLOSELY.
--- NOTE | 2020-11-25 02:26 | NUR ---
RN NOTES, SBP IN MID 80S INFORMED MOJGAN FRIAS DNP AND REPLIED WITH ORDER FOR BOLUS NS 0.9%500ML ONCE NOW, TO KEEP MAP >65, ORDER NOTED AND CARRIED OUT.
[2020-11-25] MEDS ORDERED: IV NS 0.9% 500 ML IV ONE (02:30)
[2020-11-25 03:26] LABS: BASOPHILS # (AUTO) 0.1 K/uL (0.0-0.2); BASOPHILS % (AUTO) 0.7 % (0.0-2.0); EOSINOPHILS % (AUTO) 0.1 % (0.0-6.0); LYMPHOCYTES # (AUTO) 0.7 K/uL (0.8-4.8); LYMPHOCYTES % (AUTO) 7.1 % (20.0-44.0); MEAN CORPUSCULAR HGB CONC 35 g/dl (31.0-36.0); MEAN CORPUSCULAR VOLUME 109 fL (80-96); MONOCYTES # (AUTO) 0.8 K/uL (0.1-1.30); NEUTROPHILS # (AUTO) 8.1 K/uL (1.8-8.9); NEUTROPHILS % (AUTO) 84.1 % (43.0-81.0); PLATELET COUNT (AUTO) 120 K/uL (150-450); WHITE BLOOD COUNT (AUTO) 9.6 K/uL (4.3-11.0)
[2020-11-25 03:35] LABS: CALCIUM, SERUM 7.4 mg/dL (8.5-10.1); CREATININE 3.1 mg/dL (0.6-1.3); PHOSPHORUS 4.2 mg/dL (2.5-4.9); POTASSIUM 3.8 mmol/L (3.5-5.1)
[2020-11-25] MEDS ORDERED: NOREPINEPHRINE 8MG/250ML RTU 250 ML IV ONE (03:44)
--- NOTE | 2020-11-25 03:45 | NUR ---
RN NOTES, PATIENT CONTINUE WITH SBP IN LOW 80S INFORMED MOJGAN FRIAS DNP AND HE REPLIED WITH ORDERS FOR LEVOPHED IV TITRATE TO KEEP MAP >65, ORDER NOTED AND CARRIED OUT, AWAITING FOR PHARMACY TO VERIFY MEDICATION.
[2020-11-25] MEDS: NOREPINEPHRINE 8 MG in IV NS 0.9% 242 ML IV PRN (03:48)
[2020-11-25 03:49] LABS: HEMATOCRIT 20 % (39-51); RED BLOOD CELL COUNT(AUTO) 1.83 MIL/uL (4.5-6.0)
[2020-11-25 05:11] LABS: BAND % (MANUAL) 4 % (0.0-5.0); EOSINOPHILS % (MANUAL) 2 % (0-4); LYMPHOCYTES % (MANUAL) 7 % (16-48); METAMYELOCYTES % 1 % (0-0); MONOCYTES % (MANUAL) 4 % (0-11.0); NEUTROPHILS % (MANUAL) 82 (42-76)
--- NOTE | 2020-11-25 06:53 | NUR ---
RN NOTES, PATIENT IN BED CONFUSED A/O TO SELF, CONFUSED, NO SOB/ACUTE DISTRESS, NO ACTIVE BLEEDING NOTED, S/P EGD AND BANDING X7 YESTERDAY, ONE MORE UNIT OF BLOOD INFUSED LAST NIGHT, CONTINUE ON LEVO, ON SANDOSTATIN AND IVF ORDERED, BLOOD PRESSURE 90S-LOW 100 AT THIS TIME, ALL SAFETY MEASURES IN PLACED, S/S OF BED UPX2, WILL ENDORSED CONTINUITY OF CARE TO ONCOMING NURSE.
--- NOTE | 2020-11-25 07:00 | NUR ---
RN NOTES RECEIVED PT ON BED, DRAWZY , FOLLOW SIMPLE COMMAND, CONFUSED , ON 2L O2 N/C , NO SOB , ON TELE SR HE IN 90'S , ON SANDOSTAIN AT 50MCG/HR AND LEVO AT .2 MCG/KG/MIN FOR BP SUPPORT, SR UP x3, CALL LIGHT WITHIN EASY REACH, BED LOCKED AND IN LOWEST POSITION, CONTINUE TO MONITOR .
[2020-11-25] MEDS: PANTOPRAZOLE 40 MG VIAL IV SCH ×2 (08:41→17:16)
[2020-11-25] MEDS: THIAMINE HCL 100 MG TABLET PO SCH (09:00)
[2020-11-25] MEDS: FOLIC ACID 1 MG TABLET PO SCH (09:00)
[2020-11-25] MEDS: IV NS 0.9% 1,000 ML IV PRN (15:59)
--- NOTE | 2020-11-25 16:00 | NUR ---
RN NOTES PT IS UNABLE TO VOID , BLADER IS DISTENDED AND PAINFUL TO TOUCH . DR DELGADO NOTIFIED, FOLY INSERTED PER MD ORDER , 700 CC DARK BROWNISH URINE DRAINING . DR RODRIGUEZ AND DR DELGADO NOTIFIED
--- NOTE | 2020-11-25 18:19 | NUR ---
RN NOTES PT CONFUSED , TRIES TO GET OUT OF BED AT TIMES ,ON LEVO AT .02 MCG/KG/MIN ,IVF AT 75CC /HR , SANDOSTATIN AT 50MCG/HR RUNNING VIA R UPPER ARM PICC LINE SITE, SITE CLEAN, DRY AND INTACT, SR UP x3, CALL LIGHT WITHIN EASY REACH, BED LOCKED AND IN LOWEST POSITION, WILL ENDORSE TO COMPUTER FORWARDING SYSTEM MARKUP CLERK NURSE FOR CONTINUITY OF CARE.
[2020-11-25] MEDS ORDERED: CEFTRIAXONE 1 G VIAL IV SCH (19:30)
--- NOTE | 2020-11-25 19:45 | NUR ---
RN NOTE RECEIVED PT SLEEPING, AROUSES EASILY. LIMITED ON CONVERSATIONS, BUT CAN FOLLOW SIMPLE COMMAND, DENIES ANY PAIN AT THIS TIME. RELEASED FROM WRIST RESTRAINTS, WITH GOOD CIRCULATION. GREENE IN PLACE, NOTED WITH ORANGE COLORED URINE. PT PICC LINE ON DAMEON PATENT AND INTACT, ON IV SANDOSTATIN 50 MCG/HR, NS AT 75 ML/HR AND LEVOPHED AT 0.04MCG/KG/MIN. ALL SAFETY IN PLACE, WILL CONTINUE TO MONITOR.
[2020-11-25] MEDS: OCTREOTIDE 1,250 MCG in IV NS 0.9% 247.5 ML IV PRN (20:18)
--- NOTE | 2020-11-25 20:57 | NUR ---
RN NOTE PT TRIED TO GET OUT FROM BED, PULLING OUT GREENE CATHETER. REORIENTED, EDUCATED REGARDING GREENE, PT STILL PULLING OUT GREENE AND GETTING UP. WRIST RESTRAINTS REAPPLIED. WILL CONTINUE TO MONITOR.
[2020-11-25] MEDS: CEFTRIAXONE 1 G in IV D5W 50 ML IV SCH (21:00)
--- NOTE | 2020-11-25 23:00 | NUR ---
RN NOTE PT AWAKE, MORE ALERT, ORIENTED TO TIME PLACE AND SITUATION. ON PHONE CALL WITH FAMILY. RESTRAINTS RELEASED, WILL CONTINUE TO MONITOR.
[2020-11-26] VITALS (39 sets, daily range): BP systolic 87–121; BP diastolic 53–73
--- NOTE | 2020-11-26 | NUR ---
RN NOTE PT COMPLAINING OF PAIN FROM GREENE CATH. REQUESTING TO REMOVE IT. NOTIFIED INFORMATION SYSTEMS MANAGER MOJGAN. OK TO D/C PER THEORETICAL PHYSICIST. REMOVED PTS GREENE, TOLERATED. ABLE TO PEE WITHOUT THE CATHETER. WILL CONTINUE TO MONITOR.
[2020-11-26 04:21] LABS: BILIRUBIN,URINE LARGE (NEGATIVE); COLOR,URINE BROWN (YELLOW); LEUKOCYTE ESTERASE ,URINE TRACE (NEGATIVE); NITRITE, URINE POSITIVE (NEGATIVE); PH,URINE 6.5 (5.0-8.0); PROTEIN,URINE TRACE mg/dl (NEGATIVE); UGLUCOSE NEGATIVE (NEGATIVE)
[2020-11-26 04:34] LABS: BACTERIA,URINE Many /HPF (None Seen); RBC,URINE 0-2 /HPF (0-2); SQUAMOUS EPITHELIAL CELL,UR Few /HPF (None Seen); URINE AMORPHOUS URATE Many /HPF (None Seen)
[2020-11-26 04:56] LABS: CREATININE, URINE 109.1 MG/DL (30.0-125.0)
[2020-11-26] MEDS: IV NS 0.9% 1,000 ML IV PRN ×2 (05:03→17:17)
[2020-11-26] MEDS: NOREPINEPHRINE 8 MG in IV NS 0.9% 242 ML IV PRN (05:04)
--- NOTE | 2020-11-26 07:00 | NUR ---
RN NOTE PT CONTINUE ON O2 THERAPY AT 2L. NO DISTRESS NOTED. DENIES SOB. PT STILL HAS NO VISON ON LEFT EYE, PT REQUESTED TO HAVE IT COVERED. PT ABLE TO URINATE USING URINAL. DENIES ANY PAIN AT THIS TIME. ALL NEEDS WERE ATTENDED. WILL ENDORSE TO NEXT SHIFT NURSE FOR SHARON.
--- NOTE | 2020-11-26 07:33 | NUR ---
SYSTEMS TESTER NOTE PATIENT IN BED , ALERT ORIENTED, ON 2L NC [id number] AT THIS TIME , RT UPPER ARM PICC LINE IN PLACE , ON IVF AND SANDOSTATIN DRIP ORDERED, NO SOB NOTED AT THIS TIME . STILL ON NPO , BED IN LOWEST AND LOCKED POSITION ,CALL LIGHT WITHIN REACH, WILL CONT TO MONITOR CLOSELY
[2020-11-26] MEDS: FOLIC ACID 1 MG TABLET PO SCH (08:10)
[2020-11-26] MEDS: PANTOPRAZOLE 40 MG VIAL IV SCH ×2 (08:10→16:00)
[2020-11-26] MEDS: THIAMINE HCL 100 MG TABLET PO SCH (08:10)
--- NOTE | 2020-11-26 10:06 | NUR ---
EMR ANALYST NOTE ALL NEEDS ATTENDED, KEEP CLEAN DRY , TURN REPOSITION , CONT ON OE AND LEVOPHED DRIP ORDERED , STILL NPO WILL CONT TO MONITOR CLOSELY Addendum: 11/26/20 at 1008 by CHENCHO DAVALOS RN ON IVF ORDERED
--- NOTE | 2020-11-26 10:31 | NUR ---
PROFESSOR OF ENVIRONMENTAL ENGINEERING NOTE CALLED TO [facility] NOTIFIED THAT PATIENT STILL NPO ,ORDERED CLEAR LIQUID DIET , ORDER CARRIED OUT
--- NOTE | 2020-11-26 11:20 | NUR ---
agricultural consultant note dr oliva golf course ranger at bedside notified that chest ray with rt and lt pleural effusion
[2020-11-26 11:34] LABS: BASOPHILS % (AUTO) 0.5 % (0.0-2.0); EOSINOPHILS % (AUTO) 0.6 % (0.0-6.0); HEMATOCRIT 21 % (39-51); HEMOGLOBIN 7.3 g/dL (13.5-17.5); LYMPHOCYTES # (AUTO) 0.9 K/uL (0.8-4.8); LYMPHOCYTES % (AUTO) 10.8 % (20.0-44.0); MEAN CORPUSCULAR HGB CONC 35 g/dl (31.0-36.0); MEAN CORPUSCULAR VOLUME 110 fL (80-96); MONOCYTES # (AUTO) 0.5 K/uL (0.1-1.30); MONOCYTES % (AUTO) 6.1 % (2.0-12.0); PLATELET COUNT (AUTO) 128 K/uL (150-450); WHITE BLOOD COUNT (AUTO) 8.5 K/uL (4.3-11.0)
[2020-11-26 11:36] LABS: RED BLOOD CELL COUNT(AUTO) 1.92 MIL/uL (4.5-6.0)
[2020-11-26 11:49] LABS: BILIRUBIN,TOTAL 21.1 mg/dL (0.2-1.0); CALCIUM, SERUM 7.7 mg/dL (8.5-10.1); CREATININE 2.8 mg/dL (0.6-1.3); POTASSIUM 3.2 mmol/L (3.5-5.1)
[2020-11-26 11:58] LABS: ALBUMIN 1.3 g/dL (3.4-5.0)
--- NOTE | 2020-11-26 11:59 | NUR ---
DERMATOLOGY TECHNICIAN NOTE CONSENT FOR US THORACENTESIS OBTAINED , WILL MONITOR
--- NOTE | 2020-11-26 12:25 | NUR ---
BELT CUTTER NOTE K 3.[address] ANJELICA [facility] GAVE ORDER KDUR 40 MEQ X 1PO , ORDER CARRIED OUT
[2020-11-26] MEDS ORDERED: POTASSIUM CHLORIDE 20 MEQ TAB.PRT.SR PO ONE (12:30)
--- NOTE | 2020-11-26 12:38 | NUR ---
LABEL STITCHER NOTE SEEN BY DR FRAZIER DAIRY FEED MIXING OPERATOR UPDATED PATIENT CONDITION OK ON CLEAR LIQUID DIET AWARE URINATED 300 ML TODAY NORMAN DARK COLOR
--- NOTE | 2020-11-26 14:14 | NUR ---
icu nurse note spoke with dr Brayden Zaidi updated patient condition, aware that abdomen still distended, aware of ct abdomen result also aware albumin 1.3 , also aware that will be done us thoracentesis rt side, stated possible tomorrow due to inr is elevated , will f\u Addendum: 11/26/20 at 1506 by CHENCHO DAVALOS RN per us tech and radiologist will recheck inr tomorrow and most likely thoracentesis will tomorrow
--- NOTE | 2020-11-26 16:47 | NUR ---
olericulturist note rounds made , all needs attended, keep clean dry , not in distress
--- NOTE | 2020-11-26 19:00 | NUR ---
agricultural economics teacher note all needs attended, on ivf as ordered ,on Sandostatin drip as ordered , bed in lowest and locked position , will cont to monitor closely
--- NOTE | 2020-11-26 19:20 | NUR ---
RN NOTES RECEIVED PATIENT AWAKE ALERT ORIENTED X 4. RESPONSIVE TO VERBAL AND TACTILE STIMULI. JAUNDICE ALL OVER THE BODY. NO ACUTE RESPIRATORY DISTRESS IN ROOM AIR. SATURATION 97%. NSR ON MONITOR. DENIES PAIN AT THIS TIME. AFEBRILE. IV SITE ON DAMEON PICC LINE, RFA AND LFA ALL INTACT AND PATENT RUNNING WITH SANDOSTATIN @ 10 ML/HR. WITH GOOD PERIPHERAL PULSES. BLE AND BUE WITH AAROM. OFFERED TO BE TURN FOR SIN MANAGEMENT , PATIENT STATED THAT HE IS COMFORTABLE FOR NOW. WILL OFFERED LATER. KEPT PT CLEAN AND DRY. CALL LIGHT KEPT WITHIN EASY EACH AND INSTRUCTED AND REMINDED HOW TO USE FOR ASSISTANCE AND SAFETY. WILL CLOSELY MONITOR.
[2020-11-26] MEDS: CEFTRIAXONE 1 G in IV D5W 50 ML IV SCH (21:11)
[2020-11-26] MEDS: OCTREOTIDE 1,250 MCG in IV NS 0.9% 247.5 ML IV PRN (21:30)
[2020-11-27] VITALS (43 sets, daily range): BP systolic 83–127; BP diastolic 44–73
[2020-11-27] MEDS: OCTREOTIDE 1,250 MCG in IV NS 0.9% 247.5 ML IV PRN ×2 (00:01→20:40)
--- NOTE | 2020-11-27 00:20 | NUR ---
RN NOTES BEDBATH DONE , ASSISTED PATIENT TO COMMODE WITH DARK GREENISH LIQUID COLOR OUTPUT ABOUT 500 ML. PATIENT IS ABLE TO STAND UP AND TRANSFER TO COMMODE WITH MINIMAL ASSIST. DENIES DIZZINESS, PAIN, NAUSEA VOMITING. KEPT PT CLEAN AND COMFORTABLE IN BED. ALL NEEDS ATTENDED.
--- NOTE | 2020-11-27 07:10 | NUR ---
RN NOTES 0640 AM - REPORTED BY TRU FROM LAB PATIENT PT >100 AND INR >10. CALLED ROOM SERVICE SERVER DR. ROCHA AWAITING FOR CALL BACK. GEOVANNA CTIVE BLEEDING NOTED AT THIS TIME. PATIENT ASLEEP DENIES PAIN 0655 AM - ONCMAO PARKINSON DIDN'T CALL BACK. CALLED AGAIN FOR 2 ND TIME BY EXCHANGE. AWAITING. 0710 AM - CALLED DR. VALENCIA AND AWAITING TO CALL BACK, ENDORSED TO AM SHIFT TO FOLLOW UP CALLS.. PATIENT ASLEEP RESTING ON BED, NSR ON MONITOR. NO ACTIVE BLEEDING NOTED AT THIS TIME. BREATHING EVEN AND UNLABORED. CONTINUE TO ENCOURAGED TO TURN WHILE ON BED FOR SKIN MANAGEMENT.
--- NOTE | 2020-11-27 07:30 | NUR ---
RN OPENING NOTE PT IN BED SEMIFOWLER'S, BREATHING RA SPO2 94%, NO S/S OF RESP DISTRESS OR SOB. PT DENIES PAIN, A/Ox3. PT STATES HE RECEIVED POP & Pop COVID VAX 07/2020. PT EGD REVEALED ESOPHAGEAL VARICES, PT ON CLEAR LIQUID DIET. PT DAMEON PICC, RFA AND LAC INTACT AND FLUSHING WELL, NO S/S OF INFILTRATION OR INFECTION. PT CURRENTLY RUNNING NS @ 75 ML/HR AND SANDOSTATIN @ 50 MCG/HR. PT HEMATURIA NOTED, DARK NORMAN/RED. PT ABLE TO SATND AT BEDSIDE WITH ASSISTANCE, PT IS WEAK. ALL PT SAFETY PRECAUTINOS IN PLACE, WILL CONT TO MONITOR
--- NOTE | 2020-11-27 08:15 | NUR ---
RN NOTE ANJELICA VALENCIA MESSAGED FOR PT/INR >100/>10 (HEMATURIA NOTED), K+ 3.2, ALB 1.3. AWAITING ORDERS
[2020-11-27] MEDS: PANTOPRAZOLE 40 MG VIAL IV SCH ×2 (08:48→16:42)
[2020-11-27] MEDS: IV NS 0.9% 1,000 ML IV PRN (08:48)
--- NOTE | 2020-11-27 08:57 | NUR ---
US GUIDED THORACENTESIS ON HOLD DUE TO HIGH INR.
--- NOTE | 2020-11-27 09:00 | NUR ---
RN NOTE PT REPORT GIVEN TO FRANCIS VAZQUEZ FOR SHARON. PT STABLE
--- NOTE | 2020-11-27 09:05 | NUR ---
RN NOTES RECEIVED PT FROM THEO BLANCO. VS STABLE. WILL CONTINUE TO MONITOR.
[2020-11-27] MEDS: FOLIC ACID 1 MG TABLET PO SCH (09:21)
[2020-11-27] MEDS: THIAMINE HCL 100 MG TABLET PO SCH (09:21)
[2020-11-27] MEDS: MIDODRINE HCL (5MG) 5 MG TABLET PO SCH ×2 (13:02→16:43)
[2020-11-27] MEDS: LACTULOSE 10 G/15 ML UDC (PYXIS) PO SCH ×2 (13:02→16:42)
[2020-11-27] MEDS: FUROSEMIDE 20 MG/2 ML VIAL IV SCH ×2 (13:02→16:42)
--- NOTE | 2020-11-27 17:45 | NUR ---
RN NOTES CALLED BLOOD BANK AND STILL WAITING FOR FFP. MADE AWARE. OKAY TO GIVE VIT K.
--- NOTE | 2020-11-27 18:57 | NUR ---
RN CLOSING NOTES NO SIGNIFICANT CHANGES THROUGHOUT THE SHIFT. STABLE ON ROOM AIR. NO SOB OR ANY DISTRESS NOTED. NO PAIN REPORTED AT THIS TIME. ALL DUE MEDS GIVEN. NEEDS ATTENDED. KEPT CLEAN AND COMFORTABLE. STILL WAITING FOR FFP. WILL ENDORSE TO NIGHT RN FOR SHARON.
[2020-11-27] MEDS ORDERED: PHYTONADIONE INJ 10 MG/1 ML AMPUL SQ SCH (19:00)
[2020-11-27] MEDS ORDERED: PHYTONADIONE INJ 10 MG/1 ML AMPUL IM SCH (19:00)
--- NOTE | 2020-11-27 20:00 | NUR ---
ICU/SURFACE SUPERVISOR PT APPEARS TO BE ASLEEP, RESTING COMFORTABLE. CALL LIGHT WITHIN REACH.
[2020-11-27] MEDS: CEFTRIAXONE 1 G in IV D5W 50 ML IV SCH (20:39)
--- NOTE | 2020-11-27 21:00 | NUR ---
ICU/MANAGER EXPORT PT TO GET 2X FFP FOR ELEVATED INR/PTT. CONSENT SIGNED.
--- NOTE | 2020-11-27 22:00 | NUR ---
ICU/ACCOUNT EXECUTIVE TRAINEE PT UP WITH ASST. TO BEDSIDE COMMODE. PT APPEARS TO BE ANGRY. PT DENIES PAIN. ASKED ABOUT LABS AND FUTURE PROCEDURES. ANSWERED THE QUESTIONS BEST I COULD.
[2020-11-28] VITALS (66 sets, daily range): BP systolic 90–131; BP diastolic 41–94
--- NOTE | 2020-11-28 02:00 | NUR ---
ICU/SOLVENT STATION ATTENDANT PT IS ASLEEP. POST 2 UNITS FFP. PT TO HAVE LABS IN AM.
[2020-11-28 04:25] LABS: BASOPHILS # (AUTO) 0.1 K/uL (0.0-0.2); BASOPHILS % (AUTO) 1.2 % (0.0-2.0); EOSINOPHILS % (AUTO) 1.1 % (0.0-6.0); LYMPHOCYTES # (AUTO) 0.8 K/uL (0.8-4.8); LYMPHOCYTES % (AUTO) 13.5 % (20.0-44.0); MEAN CORPUSCULAR HGB CONC 36 g/dl (31.0-36.0); MEAN CORPUSCULAR VOLUME 107 fL (80-96); MONOCYTES # (AUTO) 0.5 K/uL (0.1-1.30); NEUTROPHILS # (AUTO) 4.7 K/uL (1.8-8.9); NEUTROPHILS % (AUTO) 76.2 % (43.0-81.0); PLATELET COUNT (AUTO) 102 K/uL (150-450); WHITE BLOOD COUNT (AUTO) 6.1 K/uL (4.3-11.0)
--- NOTE | 2020-11-28 04:30 | NUR ---
ICU/MAJOR ACCOUNT MANAGER PT ASKED ABOUT LABS THEN LOOKED AWAY WHEN TALKING TO PT. PT APPEARS TO BE UNENGAGED WITH CONVERSATION.
[2020-11-28 04:53] LABS: RED BLOOD CELL COUNT(AUTO) 1.67 MIL/uL (4.5-6.0)
[2020-11-28 04:54] LABS: HEMATOCRIT 18 % (39-51); HEMOGLOBIN 6.5 g/dL (13.5-17.5)
[2020-11-28 04:56] LABS: BILIRUBIN,TOTAL 20.3 mg/dL (0.2-1.0); CALCIUM, SERUM 7.7 mg/dL (8.5-10.1); CREATININE 2.7 mg/dL (0.6-1.3); MAGNESIUM 1.6 mg/dL (1.8-2.4); PHOSPHORUS 3.6 mg/dL (2.5-4.9); POTASSIUM 3.1 mmol/L (3.5-5.1); TOTAL PROTEIN, SERUM 6.7 g/dL (6.4-8.2)
[2020-11-28 05:19] LABS: ALBUMIN 1.3 g/dL (3.4-5.0)
--- NOTE | 2020-11-28 06:30 | NUR ---
ICU/NURSE MIDWIFE AM LABS WERE DONE ADDRESSED CRITICAL LOW H/H GOT ORDER FOR 1 UNIT PRBC'S.
--- NOTE | 2020-11-28 08:00 | NUR ---
RN NOTES Received patient a/ox4, no acute respiratory distress, neuro assessment done patient stable, only left eye patient complaining of vision very poor unable to see, Pupils equal round reactive to light Neck supple no jugular venous distention Heart regular rate rhythm normal S1 Lungs clear to auscultation no wheezing Abdomen soft nontender, distended, Extremities no clubbing cyanosis edema. Assist patient to urinate stand up next to the bed using urinal, bm x1. tolerated breakfast 25%. Due medication administered. iv access on right UA PICC line intact infusing Sandostatin 50ml/hr intact. patient refused pain at this time. call light within to reach. will follow up.
[2020-11-28] MEDS: PANTOPRAZOLE 40 MG VIAL IV SCH ×2 (08:36→17:47)
[2020-11-28] MEDS: LACTULOSE 10 G/15 ML UDC (PYXIS) PO SCH ×3 (08:36→17:47)
[2020-11-28] MEDS: MIDODRINE HCL (5MG) 5 MG TABLET PO SCH ×3 (08:37→17:00)
[2020-11-28] MEDS: THIAMINE HCL 100 MG TABLET PO SCH (08:37)
[2020-11-28] MEDS: FOLIC ACID 1 MG TABLET PO SCH (08:37)
[2020-11-28] MEDS: FUROSEMIDE 20 MG/2 ML VIAL IV SCH ×2 (08:37→17:46)
[2020-11-28] MEDS: SPIRONOLACTONE 25 MG TABLET PO SCH (08:38)
--- NOTE | 2020-11-28 09:43 | NUR ---
rn notes started fresh frozen plasma infusion at this time, vss, patient refused pain, will follow up.
--- NOTE | 2020-11-28 10:00 | NUR ---
rn notes patient stable resting in the bed, bp 97/59,p-83, r-12, t-98. refused pain, increased infusion 150ml/hr. will monitoring.
[2020-11-28] MEDS: POTASSIUM CL. PREMIX PERIPHER. 50 ML IV SCH ×3 (10:53→13:14)
[2020-11-28] MEDS: Magnesium 1GM/D5W 100ML PREMIX 100 ML IV SCH ×2 (10:53→11:37)
--- NOTE | 2020-11-28 10:55 | NUR ---
US GUIDED THORACENTESIS ON HOLD DUE TO ELEVATED INR, LOW HGB. INFORMED RN SHIRA AND RN STATES AT THIS TIME PATIENT DOES NOT HAVE SOB
--- NOTE | 2020-11-28 11:04 | NUR ---
rn notes Get call from US tech according patient low hemoglobin, and elevated INR level radiologist will not do thoracentesis procedure today,patient prone to bleeding., will wait lab results again.
--- NOTE | 2020-11-28 11:24 | NUR ---
rn notes started second FFP infusion at this time 50 ml/hr on right picc line intact, t-98F, p-98, r-21, bp 106/55, patient stable refused pain. next to the bed, asking SW to talk about patient condition. SW notified.
--- NOTE | 2020-11-28 11:47 | NUR ---
rn notes T-98 oral, p-85, r-15, bp 107/61, o2-96 room air. Patient refused pain, no acute respiratory distress, increased infusion @150ml/hr on right upper picc line intact. will monitoring
--- NOTE | 2020-11-28 13:14 | NUR ---
rn notes finished FFP infusion at this time no any s/s of reaction noted, no sob, vss, t-98F orally taken. refused pain. will monitoring.
[2020-11-28] MEDS: ENSURE CLEAR 237 ML LIQUID (MIX BERRY) PO SCH (17:37)
--- NOTE | 2020-11-28 18:15 | NUR ---
RN NOTES TRANSFERRED PATIENT TO THE MED/SURGE UNIT ROOM 313 BED 1. PATIENT STABLE, VSS, DENIED PAIN AT THIS TIME. PATIENT DUE MEDICATION ADMINISTERED, TOLERATED DINNER 50% SELF. INFUSING SANDOSTATIN 50ML/HR ON RIGHT PICC LINE INTACT. REPORT GIVEN FRANCIS MEREDITH FOLLOW PLAN OF CARE.
--- NOTE | 2020-11-28 19:02 | NUR ---
MS RN NOTES/CLOSING NOTES PT TRANSFERRED FROM ICU RM 253 TO ROOM 313-1 AT 1830 VIA WHEELCHAIR ACCOMPANIED BY SHIRA RISK INTERN AND PT'S . PT IS /AO X4. ABLE TO VERBALIZED NEED. ORIENTED TO STAFF AND ROOM. ON ROOM AIR, TOLERATING WELL WITH NO SOB NOTED. V/S TAKEN AND RECORDED. PT NOTED WITH EYES JAUNDICE AND SKIN. ABDOMEN DISTENDED WITH POSITIVE BOWEL SOUNDS PRESENT. PICC LINE ON DAMEON IN PLACE AND PATENT, IVF OF SANDOSTATIN INFUSING ORDERED. PT HAS PIV'S ON LAC G18, RAC G#18 BOTH INTACT AND PATENT. SAFETY MEASURES IMPLEMENTED: BED ON LOWEST LOCKED POSITION WITH SIDE-RAILS UP X2. CALL LIGHT PLACED W/IN EASY REACH OF PT. WILL ENDORSED PLAN OF CARE AND SHARON TO CURATOR HERBARIUM NURSE.
--- NOTE | 2020-11-28 19:35 | NUR ---
MS RN NOTES RECEIVED REPORT FROM MALENA BLANCO,PATIENT TRANSFERRED FROM ICU,JAUNDICE,FROM LIVER CIRRHOSIS,ASCITES,ABDOMEN DISTENDED AND HARD TO THE TOUCH,PLANNED ULTRASOUND GUIDED THORACENTESIS,NOT DONE DUE TO INCREASED INR.WITH LOW HEMOGLOBIN LEVEL,AWAITNG FOR 1 UNIT PRBC TO TRANSFUSE WHEN AVAILABLE. AT BEDSIDE.WITH DAMEON PICC LINE FOR MEDS INTACT AND PATENT,LEFT AC,RIGHT AC INTACT AND PATENT.WILL CONTINUE TO MONITOR STATUS.
[2020-11-28] MEDS: CEFTRIAXONE 1 G in IV D5W 50 ML IV SCH (20:55)
--- NOTE | 2020-11-28 23:39 | NUR ---
MATHEMATICS PROFESSOR NOTES STARTED ON BLOOD TRANSFUSION,1 UNIT OF PRBC 288ML,INFUSING VIA IV PUMP ON RIGHT UPPER ARM PICC LINE.
[2020-11-29] VITALS: BP 100/56
[2020-11-29 00:15] VITALS: BP 99/54
[2020-11-29 02:25] VITALS: BP 101/60
--- NOTE | 2020-11-29 02:25 | NUR ---
MS RN NOTES BLOOD TRANSFUSION COMPLETED THIS.NO ADVERSE SIDE EFFECTS NOTED
[2020-11-29] MEDS: OCTREOTIDE 1,250 MCG in IV NS 0.9% 247.5 ML IV PRN (02:55)
--- NOTE | 2020-11-29 06:29 | NUR ---
MS RN NOTES IN BED SLEEPING,NO SIGNS AND SYMPTOMS OF RESPIRATORY DISTRESS,AMBULATE WITH STANDBY ASSIST,REMAINS JAUNDICE,ABDOMEN SLIGHTLY DISTENDED.BLOOD TRANSFUSION TOLERATED WELL.IN NO ACUTE DISTRESS.CALL LIGHT IN REACH,NEEDS ATTENDED
--- NOTE | 2020-11-29 07:15 | NUR ---
MS RN OPENING RECEIVED PT A/O X3-4. ABLE TO VERBALIZED NEED. ORIENTED TO STAFF AND ROOM. ON ROOM AIR, TOLERATING WELL WITH NO SOB NOTED. V/S TAKEN AND RECORDED. PT NOTED WITH EYES JAUNDICE AND SKIN. ABDOMEN DISTENDED WITH POSITIVE BOWEL SOUNDS PRESENT. PICC LINE ON DAMEON AND IV ACCESS ON RIGHT FOREARM AND LEFT FOREARM IN PLACE AND PATENT AND INTACT, IVF OF SANDOSTATIN INFUSING ORDERED. SAFETY MEASURES IMPLEMENTED: BED ON LOWEST LOCKED POSITION WITH SIDE-RAILS UP X2. CALL LIGHT PLACED W/IN EASY REACH OF PT. WILL CONTINUE MONITORING PATIENT.
[2020-11-29 08:00] VITALS: BP 95/55
[2020-11-29 08:52] LABS: CALCIUM, SERUM 7.5 mg/dL (8.5-10.1); CREATININE 2.9 mg/dL (0.6-1.3); POTASSIUM 3.3 mmol/L (3.5-5.1)
[2020-11-29 08:56] LABS: BASOPHILS % (AUTO) 0.4 % (0.0-2.0); EOSINOPHILS % (AUTO) 0.6 % (0.0-6.0); HEMOGLOBIN 7.2 g/dL (13.5-17.5); LYMPHOCYTES # (AUTO) 0.6 K/uL (0.8-4.8); LYMPHOCYTES % (AUTO) 10.5 % (20.0-44.0); MEAN CORPUSCULAR HGB CONC 36 g/dl (31.0-36.0); MEAN CORPUSCULAR VOLUME 106 fL (80-96); MONOCYTES # (AUTO) 0.5 K/uL (0.1-1.30); MONOCYTES % (AUTO) 7.8 % (2.0-12.0); NEUTROPHILS # (AUTO) 4.7 K/uL (1.8-8.9); NEUTROPHILS % (AUTO) 80.7 % (43.0-81.0); PLATELET COUNT (AUTO) 85 K/uL (150-450); WHITE BLOOD COUNT (AUTO) 5.9 K/uL (4.3-11.0)
[2020-11-29 08:57] LABS: RED BLOOD CELL COUNT(AUTO) 1.89 MIL/uL (4.5-6.0)
[2020-11-29 08:59] LABS: HEMATOCRIT 20 % (39-51)
[2020-11-29] MEDS: ENSURE CLEAR 237 ML LIQUID (MIX BERRY) PO SCH ×3 (09:00→17:00)
[2020-11-29] MEDS: LACTULOSE 10 G/15 ML UDC (PYXIS) PO SCH ×3 (09:00→17:00)
[2020-11-29] MEDS: PANTOPRAZOLE 40 MG VIAL IV SCH ×2 (09:45→18:19)
[2020-11-29] MEDS: MIDODRINE HCL (5MG) 5 MG TABLET PO SCH ×3 (09:46→18:18)
[2020-11-29] MEDS: FUROSEMIDE 20 MG/2 ML VIAL IV SCH ×2 (09:46→18:19)
[2020-11-29] MEDS: SPIRONOLACTONE 25 MG TABLET PO SCH ×2 (09:46→18:53)
[2020-11-29] MEDS: FOLIC ACID 1 MG TABLET PO SCH (09:46)
[2020-11-29] MEDS: THIAMINE HCL 100 MG TABLET PO SCH (09:46)
--- NOTE | 2020-11-29 11:05 | NUR ---
MS RN NOTE S/P THORACENTESIS WITH 960 ML TAKEN OUT. WILL CONTINUE TO MONITOR PATIENT.
[2020-11-29 13:25] LABS: LYMPHOCYTES % (MANUAL) 9 % (16-48); MONOCYTES % (MANUAL) 7 % (0-11.0); NEUTROPHILS % (MANUAL) 84 (42-76)
[2020-11-29] MEDS ORDERED: POTASSIUM CHLORIDE 10 MEQ TABLET.SA PO ONE (19:00)
--- NOTE | 2020-11-29 19:00 | NUR ---
MS RN CLOSING NOTE PT A/O X3-4. ABLE TO VERBALIZED NEED. ORIENTED TO STAFF AND ROOM. ON ROOM AIR, TOLERATING WELL WITH NO SOB NOTED. V/S TAKEN AND RECORDED. PT NOTED WITH EYES JAUNDICE AND SKIN. ABDOMEN DISTENDED WITH POSITIVE BOWEL SOUNDS PRESENT. PICC LINE ON DAMEON AND IV ACCESS ON RIGHT FOREARM IN PLACE AND PATENT AND INTACT, IVF OF SANDOSTATIN INFUSING ORDERED. SAFETY MEASURES IMPLEMENTED: BED ON LOWEST LOCKED POSITION WITH SIDE-RAILS UP X2. CALL LIGHT PLACED W/IN EASY REACH OF PT. WILL ENDORSE TO NEXT SHIFT FOR CONTINUITY OF CARE.
--- NOTE | 2020-11-29 19:20 | NUR ---
MS RN OPENING NOTE RECEIVED PT AWAKE, A/OX3-4, ABLE TO VERBALIZE NEEDS. PT IS JAUNDICED AND WITH ASCITES. PT DENIES PAIN OR DISCOMFORT AT THIS TIME. ON ROOM AIR. DENIES SOB. IV SITE ON R-FA #18 AND DAMEON PICC LINE INTACT, PATENT AND FLUSHES WELL. PT ABLE TO AMBULATE TO BR WITH STEADY GAIT. NO ACUTE DISTRESS NOTED. SAFETY MEASURES IN PLACE, BED IN LOWEST LOCKED POSITION, S/R UP X2, CALL LIGHT WITHIN REACH. WILL CONTINUE TO MONITOR.
[2020-11-29 20:00] VITALS: BP 101/61
[2020-11-30] VITALS (8 sets, daily range): BP systolic 92–105; BP diastolic 54–61
[2020-11-30 06:34] LABS: BASOPHILS % (AUTO) 0.7 % (0.0-2.0); EOSINOPHILS % (AUTO) 0.8 % (0.0-6.0); LYMPHOCYTES # (AUTO) 0.6 K/uL (0.8-4.8); LYMPHOCYTES % (AUTO) 10.8 % (20.0-44.0); MEAN CORPUSCULAR HGB CONC 36 g/dl (31.0-36.0); MEAN CORPUSCULAR VOLUME 106 fL (80-96); MONOCYTES # (AUTO) 0.6 K/uL (0.1-1.30); MONOCYTES % (AUTO) 9.7 % (2.0-12.0); NEUTROPHILS # (AUTO) 4.4 K/uL (1.8-8.9); PLATELET COUNT (AUTO) 77 K/uL (150-450); WHITE BLOOD COUNT (AUTO) 5.7 K/uL (4.3-11.0)
[2020-11-30 06:47] LABS: HEMOGLOBIN 6.9 g/dL (13.5-17.5)
[2020-11-30 06:48] LABS: HEMATOCRIT 19 % (39-51)
[2020-11-30 06:52] LABS: BILIRUBIN,TOTAL 16.2 mg/dL (0.2-1.0); CALCIUM, SERUM 7.6 mg/dL (8.5-10.1); CREATININE 2.8 mg/dL (0.6-1.3); PHOSPHORUS 3.2 mg/dL (2.5-4.9); POTASSIUM 3.5 mmol/L (3.5-5.1)
[2020-11-30 06:54] LABS: ALBUMIN 1.3 g/dL (3.4-5.0)
--- NOTE | 2020-11-30 07:00 | NUR ---
RN NOTE RECEIVED CRIT LAB RESULT: HGB 6.9, HCT 19. ENDORSED TO NEXT SHIFT RN AND WILL INFORM MD.
--- NOTE | 2020-11-30 07:04 | NUR ---
RN CLOSING NOTE PT RESTING IN BED, EASILY AROUSABLE TO STIMULI. A/OX3-4. NO C/O PAIN/DISCOMFORT. NO SOB. IV SITES R-FA AND DAMEON PICC LINE BOTH INTACT/PATENT/FLUSHES WELL. PT ABLE TO AMBULATE TO BR WITH STEADY GAIT. NO ACUTE EVENTS DURING THE NIGHT. ALL NEEDS ATTENDED TO. SAFETY MEASURES MAINTAINED, BED IN LOWEST LOCKED POSITION, S/R UP X2, CALL LIGHT WITHIN REACH. ENDORSED TO NEXT SHIFT NURSE.
[2020-11-30] MEDS: LACTULOSE 10 G/15 ML UDC (PYXIS) PO SCH ×3 (09:00→18:08)
[2020-11-30] MEDS: OCTREOTIDE 1,250 MCG in IV NS 0.9% 247.5 ML IV PRN (09:59)
[2020-11-30] MEDS: THIAMINE HCL 100 MG TABLET PO SCH (10:02)
[2020-11-30] MEDS: FOLIC ACID 1 MG TABLET PO SCH (10:02)
[2020-11-30] MEDS: SPIRONOLACTONE 25 MG TABLET PO SCH ×2 (10:03→18:10)
[2020-11-30] MEDS: FUROSEMIDE 20 MG/2 ML VIAL IV SCH ×2 (10:06→18:08)
[2020-11-30] MEDS: MIDODRINE HCL (5MG) 5 MG TABLET PO SCH ×3 (10:06→18:09)
[2020-11-30] MEDS: PANTOPRAZOLE 40 MG VIAL IV SCH ×2 (10:06→18:09)
[2020-11-30] MEDS: ENSURE CLEAR 237 ML LIQUID (MIX BERRY) PO SCH (10:39)
[2020-11-30 11:12] LABS: LYMPHOCYTES % (MANUAL) 9 % (16-48); MONOCYTES % (MANUAL) 4 % (0-11.0); NEUTROPHILS % (MANUAL) 87 (42-76)
--- NOTE | 2020-11-30 16:55 | NUR ---
MS RN NOTE BLOOD TRANSFUSION STARTED ORDERED.
--- NOTE | 2020-11-30 19:00 | NUR ---
MS RN CLOSING NOTE PT A/O X3-4. ABLE TO VERBALIZED NEED. ORIENTED TO STAFF AND ROOM. ON ROOM AIR, TOLERATING WELL WITH NO SOB NOTED. V/S TAKEN AND RECORDED. PT NOTED WITH EYES JAUNDICE AND SKIN. ABDOMEN DISTENDED WITH POSITIVE BOWEL SOUNDS PRESENT. PICC LINE ON DAMEON AND IV ACCESS ON RIGHT FOREARM IN PLACE AND PATENT AND INTACT, IVF OF SANDOSTATIN INFUSING ORDERED. PATIENT WITH ONGOING BLOOD TRANFUSION TOLERATED WELL. SAFETY MEASURES IMPLEMENTED: BED ON LOWEST LOCKED POSITION WITH SIDE-RAILS UP X2. CALL LIGHT PLACED W/IN EASY REACH OF PT. WILL ENDORSE TO NEXT SHIFT FOR CONTINUITY OF CARE.
--- NOTE | 2020-11-30 20:00 | NUR ---
MS RN OPENING NOTE RECEIVED PT AWAKE IN BED. A/O X3-4, ABLE TO VERBALIZE NEEDS. PT IS STABLE ON ROOM AIR. NO SOB OR S/S OF RESPIRATORY DISTRESS NOTED. PT HAS NO C/O PAIN OR DISCOMFORT AT THIS TIME. PT IS CURRENTLY UNDERGOING BLOOD TRANSFUSION WITH NO ADVERSE REACTIONS NOTED. PT NOTED WITH JAUNDICE AND ASCITES. IV ACCESS IN RFA #18 AND DAMEON PICC LINE, INTACT AND PATENT. SAFETY PRECAUTIONS MAINTAINED. BED IN LOWEST LOCKED POSITION, HOB ELEVATED, SIDE RAILS UP X2. CALL LIGHT AND TABLE WITHIN REACH. WILL CONTINUE WITH PLAN OF CARE.
--- NOTE | 2020-11-30 20:20 | NUR ---
RN NOTE TRANSFUSION OF 1 UNIT OF PRBC COMPLETED AT THIS TIME. VS BP 101/57, HR 83, RR 18, T 98.2, SPO2 96%. NO ADVERSE REACTIONS NOTED. WILL CONTINUE TO MONITOR PT.
--- NOTE | 2020-12-01 06:21 | NUR ---
MS RN CLOSING NOTE PT IS AWAKE IN BED. A/O X3-4, ABLE TO VERBALIZE NEEDS. PT IS STABLE ON ROOM AIR. NO SOB OR S/S OF RESPIRATORY DISTRESS NOTED. PT HAS NO C/O PAIN OR DISCOMFORT AT THIS TIME. PT NOTED WITH JAUNDICE AND ASCITES. IV ACCESS IS INTACT, PATENT, AND FLUSHING WELL. ALL NEEDS HAVE BEEN MET. SAFETY PRECAUTIONS MAINTAINED AT ALL TIMES. BED IN LOWEST LOCKED POSITION, HOB ELEVATED, SIDE RAILS UP X2. CALL LIGHT AND TABLE WITHIN REACH. WILL ENDORSE TO ONCOMING NURSE FOR SHARON.
[2020-12-01 06:39] LABS: BASOPHILS # (AUTO) 0.1 K/uL (0.0-0.2); BASOPHILS % (AUTO) 0.9 % (0.0-2.0); EOSINOPHILS % (AUTO) 0.6 % (0.0-6.0); HEMATOCRIT 22 % (39-51); HEMOGLOBIN 7.7 g/dL (13.5-17.5); LYMPHOCYTES # (AUTO) 0.8 K/uL (0.8-4.8); LYMPHOCYTES % (AUTO) 12.8 % (20.0-44.0); MEAN CORPUSCULAR HGB CONC 35 g/dl (31.0-36.0); MEAN CORPUSCULAR VOLUME 104 fL (80-96); MONOCYTES # (AUTO) 0.5 K/uL (0.1-1.30); NEUTROPHILS # (AUTO) 4.6 K/uL (1.8-8.9); NEUTROPHILS % (AUTO) 77.7 % (43.0-81.0); PLATELET COUNT (AUTO) 78 K/uL (150-450); RED BLOOD CELL COUNT(AUTO) 2.11 MIL/uL (4.5-6.0)
[2020-12-01 06:51] LABS: CALCIUM, SERUM 7.7 mg/dL (8.5-10.1); CREATININE 2.8 mg/dL (0.6-1.3); MAGNESIUM 1.6 mg/dL (1.8-2.4); POTASSIUM 3.4 mmol/L (3.5-5.1)
--- NOTE | 2020-12-01 07:26 | NUR ---
MS RN OPENING NOTE RECEIVED PT AWAKE IN BED IN [place] ACUTE SIGNS OF DISTRESS. A/OX3-4, ABLE TO VERBALIZE NEEDS, DENIES PAIN OR ANY DISCOMFORTS AT THIS TIME. PT IS JAUNDICED AND WITH ASCITES. ON ROOM AIR, BREATHING EVEN AND UNLABORED. IV SL ON R-FA #18 AND DAMEON PICC LINE INTACT, PATENT AND FLUSHES WELL. IV SANDOSTATIN @ 50ML/HR INFUSING WELL TO DAMEON PICC LINE. SAFETY MEASURES IN PLACE: BED IN LOWEST LOCKED POSITION, S/R UP X2 AND CALL LIGHT WITHIN REACH. WILL CONTINUE TO MONITOR.
[2020-12-01 08:00] VITALS: BP 105/65
[2020-12-01] MEDS: FUROSEMIDE 20 MG/2 ML VIAL IV SCH ×2 (08:38→17:12)
[2020-12-01] MEDS: FOLIC ACID 1 MG TABLET PO SCH (08:38)
[2020-12-01] MEDS: PANTOPRAZOLE 40 MG VIAL IV SCH ×2 (08:38→17:12)
[2020-12-01] MEDS: THIAMINE HCL 100 MG TABLET PO SCH (08:38)
[2020-12-01] MEDS: LACTULOSE 10 G/15 ML UDC (PYXIS) PO SCH ×3 (08:38→17:00)
[2020-12-01] MEDS: SPIRONOLACTONE 25 MG TABLET PO SCH ×2 (08:39→17:13)
[2020-12-01] MEDS: MIDODRINE HCL (5MG) 5 MG TABLET PO SCH ×3 (08:39→17:13)
[2020-12-01 09:54] LABS: LYMPHOCYTES % (MANUAL) 7 % (16-48); MONOCYTES % (MANUAL) 4 % (0-11.0); NEUTROPHILS % (MANUAL) 89 (42-76)
[2020-12-01] MEDS: OCTREOTIDE 1,250 MCG in IV NS 0.9% 247.5 ML IV PRN (10:15)
[2020-12-01] MEDS ORDERED: OCTREOTIDE 1,250 MCG in IV NS 0.9% 247.5 ML IV PRN (13:00)
[2020-12-01 16:00] VITALS: BP 107/62
--- NOTE | 2020-12-01 18:39 | NUR ---
MS RN CLOSING NOTES PT IN BED WATCHING ON MOVIE ON HIS I-PAD AT THIS TIME. A/OX3-4, ABLE TO VERBALIZE NEEDS. PT REMAINS JAUNDICED AND WITH ASCITES. ON ROOM AIR, BREATHING EVEN AND UNLABORED, NO SOB NOTED DURING THE DAY. IV SL ON RFA #18 AND DAMEON PICC LINE INTACT, PATENT AND FLUSHES WELL. IV SANDOSTATIN @ 5ML/HR INFUSING WELL TO DAMEON PICC LINE. ALL NEEDS AND CARE ATTENDED WELL. SAFETY PRECAUTIONS MAINTAINED: BED IN LOWEST LOCKED POSITION, HOB ELEVATED, SIDE RAILS UP X2, CALL LIGHT AND BEDSIDE TABLE WITHIN EASY REACH OF PT. WILL ENDORSE SHARON TO SILVER SOLUTION MIXER NURSE.
--- NOTE | 2020-12-01 19:30 | NUR ---
MS RN OPENING NOTE RECEIVED PT AWAKE IN BED. A/O X3-4, ABLE TO VERBALIZE NEEDS. PT IS STABLE ON ROOM AIR WITH NO SOB OR S/S OF RESPIRATORY DISTRESS. PT HAS NO C/O PAIN OR DISCOMFORT AT THIS TIME. PT IS JAUNDICED AND WITH ASCITES. IV ACCESS IN RFA #18 AND DAMEON PICC LINE, INTACT AND PATENT. SANDOSTATIN IV @ 50ML/HR INFUSING TO DAMEON PICC LINE. SAFETY PRECAUTIONS MAINTAINED. BED IN LOWEST LOCKED POSITION, HOB ELEVATED, SIDE RAILS UP X2. CALL LIGHT AND TABLE WITHIN REACH. WILL CONTINUE WITH PLAN OF CARE.
[2020-12-01 20:00] VITALS: BP 108/63
--- NOTE | 2020-12-02 06:26 | NUR ---
MS RN CLOSING NOTE PT IS AWAKE IN BED. A/O X3-4. PT IS STABLE ON ROOM AIR WITH NO SOB OR S/S OF RESPIRATORY DISTRESS. PT HAS NO C/O PAIN OR DISCOMFORT AT THIS TIME. PT IS JAUNDICED AND WITH ASCITES. IV ACCESS IS INTACT, PATENT, AND FLUSHING WELL. SANDOSTATIN IV @ 50ML/HR INFUSING TO DAMEON PICC LINE. ALL NEEDS HAVE BEEN MET. SAFETY PRECAUTIONS MAINTAINED AT ALL TIMES. BED IN LOWEST LOCKED POSITION, HOB ELEVATED, SIDE RAILS UP X2. CALL LIGHT AND TABLE WITHIN REACH. WILL ENDORSE TO ONCOMING NURSE FOR SHARON.
[2020-12-02 06:36] LABS: CALCIUM, SERUM 8.1 mg/dL (8.5-10.1); CREATININE 2.7 mg/dL (0.6-1.3); MAGNESIUM 1.5 mg/dL (1.8-2.4); PHOSPHORUS 3.2 mg/dL (2.5-4.9); POTASSIUM 3.8 mmol/L (3.5-5.1)
--- NOTE | 2020-12-02 07:11 | NUR ---
MS RN OPENING NOTES PT RECEIVED IN BED AWAKE A/O X3-4. ABLE TO MAKE NEEDS KNOWN, NO C/O PAIN OR DISCOMFORTS VOICED AT THIS TIME. PT REMAINS JAUNDICE AND WITH ASCITES. ON ROOM AIR, BREATHING EVEN AND UNLABORED, NO SOB OR S/S OF RESPIRATORY DISTRESS NOTED. IV SL ON RFA #18 AND DAMEON PICC LINE INTACT AND PATENT. SANDOSTATIN IV @ 5ML/HR INFUSING TO DAMEON PICC LINE. SAFETY PRECAUTIONS MAINTAINED: BED IN LOWEST LOCKED POSITION, HOB ELEVATED, SIDE RAILS UP X2, BED ALARM ON AND CALL LIGHT WITHIN REACH. WILL CONTINUE TO MONITOR PT ACCORDINGLY.
[2020-12-02 07:14] LABS: BASOPHILS % (AUTO) 0.6 % (0.0-2.0); EOSINOPHILS % (AUTO) 0.5 % (0.0-6.0); HEMOGLOBIN 7.1 g/dL (13.5-17.5); LYMPHOCYTES # (AUTO) 0.6 K/uL (0.8-4.8); LYMPHOCYTES % (AUTO) 12.8 % (20.0-44.0); MEAN CORPUSCULAR HGB CONC 35 g/dl (31.0-36.0); MEAN CORPUSCULAR VOLUME 103 fL (80-96); MONOCYTES # (AUTO) 0.3 K/uL (0.1-1.30); MONOCYTES % (AUTO) 6.5 % (2.0-12.0); NEUTROPHILS % (AUTO) 79.6 % (43.0-81.0); PLATELET COUNT (AUTO) 69 K/uL (150-450)
[2020-12-02 07:29] LABS: RED BLOOD CELL COUNT(AUTO) 1.96 MIL/uL (4.5-6.0)
[2020-12-02 07:31] LABS: HEMATOCRIT 20 % (39-51)
[2020-12-02 08:00] VITALS: BP 109/62
[2020-12-02] MEDS ORDERED: Magnesium 1GM/D5W 100ML PREMIX 100 ML IV SCH (08:30)
[2020-12-02] MEDS: LACTULOSE 10 G/15 ML UDC (PYXIS) PO SCH ×3 (09:00→17:00)
[2020-12-02] MEDS: FUROSEMIDE 20 MG/2 ML VIAL IV SCH ×2 (09:21→16:48)
[2020-12-02] MEDS: FOLIC ACID 1 MG TABLET PO SCH (09:22)
[2020-12-02] MEDS: SPIRONOLACTONE 25 MG TABLET PO SCH ×2 (09:22→17:47)
[2020-12-02] MEDS: PANTOPRAZOLE 40 MG VIAL IV SCH ×2 (09:22→16:48)
[2020-12-02] MEDS: THIAMINE HCL 100 MG TABLET PO SCH (09:23)
[2020-12-02] MEDS: MIDODRINE HCL (5MG) 5 MG TABLET PO SCH ×3 (09:23→17:47)
--- NOTE | 2020-12-02 14:50 | NUR ---
SS note Per received SS request, SS followed up with pt's , Wen Broderick, , to discuss D/C plan. Pt's , Wen, requested for the pt to be placed at a residential treatment center for substance use. Wen expressed her concerns about the pt's substance use. PLAN SW will fax clinicals to treatment centers for review and file substance use resources in the pt's D/C packet. SS will continue to remain available as needed.
--- NOTE | 2020-12-02 18:45 | NUR ---
MS RN CLOSING NOTES PT IN BED ASLEEP AT THIS TIME, EASILY AWKENS. HOB ELEVATED. JUST WENT HOME. PT IS A/OX3-4. ABLE TO VERBALIZE NEEDS AND REMAINS JAUNDICE AND WITH ASCITES. ON ROOM AIR, BREATHING EVEN AND UNLABORED, NO SOB NOTED DURING THE DAY. IV SL ON RFA #18 AND DAMEON PICC LINE INTACT, PATENT AND FLUSHES WELL. IV SANDOSTATIN @ 5ML/HR INFUSING WELL TO DAMEON PICC LINE. ALL NEEDS AND CARE ATTENDED WELL. SAFETY PRECAUTIONS MAINTAINED: BED IN LOWEST LOCKED POSITION, HOB ELEVATED, SIDE RAILS UP X2, CALL LIGHT AND BEDSIDE TABLE WITHIN EASY REACH OF PT. WILL ENDORSE SHARON TO INDUSTRIAL ELECTRICAL ENGINEER
--- NOTE | 2020-12-02 19:34 | NUR ---
RN OPENING NOTES PT IN BED ASLEEP AT THIS TIME, EASILY AWAKENS. HOB ELEVATED.PT IS A/OX3-4. ABLE TO VERBALIZE NEEDS. PT NOTED WITH JAUNDICE AND WITH ASCITES. ON ROOM AIR, BREATHING EVEN AND UNLABORED, NO SOB NOTED. IV SL ON RFA #18 AND DAMEON PICC LINE INTACT, PATENT AND FLUSHES WELL. ALL NEEDS AND CARE ATTENDED WELL AT THIS TIME SAFETY PRECAUTIONS MAINTAINED: BED IN LOWEST LOCKED POSITION, HOB ELEVATED, SIDE RAILS UP X2, CALL LIGHT AND BEDSIDE TABLE WITHIN EASY REACH OF PT. WILL CONTINUE TO MONITOR. Addendum: 12/03/20 at 0641 by DERICK ARAYA RN A/0 X3 WITH SOME EPISODES OF CONFUSION
[2020-12-02 20:00] VITALS: BP 98/57
[2020-12-03] VITALS (7 sets, daily range): BP systolic 106–117; BP diastolic 60–70
--- NOTE | 2020-12-03 01:30 | NUR ---
RN NOTES PT S/P BLOOD TRANSFUSION OF I UNIT LRBC PT TOLERATED TRANSFUSION WELL. VITAL SIGNS STABLE. NO FEVER NO PAIN. NO DISCOMFORT AT THIS TIME. NO ADVERSE EFFECTS NOTED AT THIS TIME. WILL CONTINUE TO MONITOR.
--- NOTE | 2020-12-03 06:38 | NUR ---
RN NOTES PT IN BED ASLEEP AT THIS TIME, EASILY AWAKENS. HOB ELEVATED.PT IS A/OX3 WITH SOME EPISODES OF CONFUSION. ABLE TO VERBALIZE NEEDS. PT NOTED WITH JAUNDICE AND WITH ASCITES. ON ROOM AIR, BREATHING EVEN AND UNLABORED, NO SOB NOTED. IV SL ON RFA #18 AND DAMEON PICC LINE INTACT, PATENT AND FLUSHES WELL. ALL NEEDS AND CARE ATTENDED WELL AT THIS TIME SAFETY PRECAUTIONS MAINTAINED: BED IN LOWEST LOCKED POSITION, HOB ELEVATED, SIDE RAILS UP X2, CALL LIGHT AND BEDSIDE TABLE WITHIN EASY REACH OF PT. WILL ENDORSE CARE TO DAY SHIFT NURSE.
[2020-12-03 06:39] LABS: BASOPHILS % (AUTO) 0.5 % (0.0-2.0); EOSINOPHILS % (AUTO) 0.6 % (0.0-6.0); LYMPHOCYTES # (AUTO) 0.7 K/uL (0.8-4.8); LYMPHOCYTES % (AUTO) 9.6 % (20.0-44.0); MEAN CORPUSCULAR HGB CONC 36 g/dl (31.0-36.0); MEAN CORPUSCULAR VOLUME 103 fL (80-96); MONOCYTES # (AUTO) 0.5 K/uL (0.1-1.30); MONOCYTES % (AUTO) 6.6 % (2.0-12.0); NEUTROPHILS % (AUTO) 82.7 % (43.0-81.0); PLATELET COUNT (AUTO) 71 K/uL (150-450); WHITE BLOOD COUNT (AUTO) 7.3 K/uL (4.3-11.0)
[2020-12-03 07:03] LABS: CREATININE 2.6 mg/dL (0.6-1.3); MAGNESIUM 1.5 mg/dL (1.8-2.4); PHOSPHORUS 3.3 mg/dL (2.5-4.9); POTASSIUM 3.9 mmol/L (3.5-5.1)
--- NOTE | 2020-12-03 07:27 | NUR ---
MS/RN OPENING NOTES RECEIVED PATIENT ON BED AWAKE ALERT AND ORIENTED X3-4 WITH EPISODE OF CONFUSION. PATIENT IS ON ROOM AIR. PATIENT IN NO APPARENT RESPIRATORY DISTRESS NOTED. NO COMPLAINED OF PAIN NOTED AT THIS TIME. WILL CONTINUE TO MONITOR.
[2020-12-03 07:40] LABS: RED BLOOD CELL COUNT(AUTO) 1.81 MIL/uL (4.5-6.0)
[2020-12-03 07:44] LABS: HEMOGLOBIN 6.7 g/dL (13.5-17.5)
[2020-12-03 07:45] LABS: HEMATOCRIT 19 % (39-51)
--- NOTE | 2020-12-03 07:59 | NUR ---
MS/RN NOTES HGB 6.7 HCT 19 ABHISHEK NOLASCO NP WAS AWARE. WILL CONTINUE TO MONITOR.
[2020-12-03] MEDS: FOLIC ACID 1 MG TABLET PO SCH (08:16)
[2020-12-03] MEDS: PANTOPRAZOLE 40 MG VIAL IV SCH ×2 (08:16→16:14)
[2020-12-03] MEDS: LACTULOSE 10 G/15 ML UDC (PYXIS) PO SCH ×3 (08:16→16:25)
[2020-12-03] MEDS: FUROSEMIDE 20 MG/2 ML VIAL IV SCH ×2 (08:16→16:15)
[2020-12-03] MEDS: THIAMINE HCL 100 MG TABLET PO SCH (08:18)
[2020-12-03] MEDS: SPIRONOLACTONE 25 MG TABLET PO SCH ×2 (08:18→16:15)
--- NOTE | 2020-12-03 08:18 | NUR ---
MS/RN NOTES BP 106/60 PULSE 91 WILL CONTINUE TO MONITOR.
[2020-12-03] MEDS: MIDODRINE HCL (5MG) 5 MG TABLET PO SCH ×3 (08:21→16:15)
--- NOTE | 2020-12-03 09:50 | NUR ---
MS/RN NOTES ABHISHEK NOLASCO SUPERVISOR GELATIN PLANT ORDER TRANSFUSE 1 UNIT PRBC. NOTED AND CARRIED OUT.
[2020-12-03] MEDS ORDERED: Magnesium 1GM/D5W 100ML PREMIX 100 ML IV SCH (11:00)
--- NOTE | 2020-12-03 12:15 | NUR ---
D/C Planning: SW met with pt.at bedside. The pt. is A&O X 2. Pt. is not oriented to date or location. Pt. appears unkempt, does not make eye contact. Pt. solomon s monotone voice with flat affect. Pt. is unable to engage in meaningful conversation at this time possibly due to encephalopathy Dx per MD note. Residential Tx wolf not seem appropriate at this time since pt. becky not be able to participate int Tx. if he cannot hold a conversation. ARABELLA discussed SNF placement with [facility]. Shiloh stated he will refer pt[facility] to [facility]. ARABELLA discussed SNF placement with pt.'s , Wen Broderick [phone] and explained why Residential Tx. for alcohol abuse is not appropriate at this time and she expressed understanding and was agreeable to SNF placement.
--- NOTE | 2020-12-03 15:18 | NUR ---
MS/RN NOTES PATIENT IS AWAKE ALERT AND ORIENTED X3-4 WITH EPISODE OF CONFUSION. PATIENT IS ON ROOM AIR. PATIENT IN NO APPARENT RESPIRATORY DISTRESS NOTED. NO COMPLAINED OF PAIN NOTED AT THIS TIME. AIR BRUSH DECORATOR BY ARCHITECT MARINE.
--- NOTE | 2020-12-03 15:34 | NUR ---
MS/RN NOTES PATIENT IS AWAKE ALERT AND ORIENTED X3-4 WITH EPISODE OF CONFUSION. PATIENT IS ON ROOM AIR. PATIENT IN NO APPARENT RESPIRATORY DISTRESS NOTED. NO COMPLAINED OF PAIN NOTED AT THIS TIME. CAME BACK IN THE ROOM ACCOMPANIED BY MASTER CERTIFIED RV TECHNICIAN.
[2020-12-03] MEDS: FUROSEMIDE 40 MG TABLET PO SCH (17:00)
--- NOTE | 2020-12-03 17:08 | NUR ---
RN NOTES LASIX 20MG IV WAS GIVEN AT 1700 BEFORE DISCONTINUED.
--- NOTE | 2020-12-03 19:16 | NUR ---
MS/RN CLOSING NOTES PATIENT IS ALERT AND ORIENTED X 3-4 WITH EPISODES OF CONFUSION. PATIENT IS ON ROOM AIR. PATIENT IN NO APPARENT RESPIRATORY DISTRESS NOTED. NO COMPLAINED OF PAIN NOTED AT THIS TIME. IV ACCESS AT RIGHT UPPER ARM PICC AND RIGHT FOREARM # 18 G PATENT AND INTACT. SEEN AND EXAMINED BY MD WITH ORDERS MADE AND CARRIED OUT. ALL DUE MEDICATIONS WAS GIVEN. SAFETY PRECAUTIONS WAS IN PLACED. BED IN LOWEST POSITION AND LOCKED. SIDERAILS UP X2. CALL LIGHT WITHIN REACH. WILL ENDORSED TO ELECTRONIC SCALE TESTER FOR SHARON.
[2020-12-03] MEDS: RIFAXIMIN 550 MG TABLET PO SCH (20:07)
--- NOTE | 2020-12-03 20:55 | NUR ---
OPENING NOTES PATIENT IS ALERT AND ORIENTED X 3-4 WITH EPISODES OF CONFUSION. PATIENT IS ON ROOM AIR. PATIENT IN NO APPARENT RESPIRATORY DISTRESS NOTED. NO COMPLAINED OF PAIN NOTED AT THIS TIME. IV ACCESS AT RIGHT UPPER ARM PICC AND RIGHT FOREARM # 18 G PATENT AND INTACT. SAFETY PRECAUTIONS WAS IN PLACED. BED IN LOWEST POSITION AND LOCKED. SIDERAILS UP X2. CALL LIGHT WITHIN REACH. WILL CONTINUE TO MONITOR.
--- NOTE | 2020-12-03 23:53 | NUR ---
RN NOTES PT STARTED ON BLOOD TRANSFUSION RISK AND BENEFITS EXPLAINED AND UNDERSTOOD S/S TO REPORT EXPLAINED TO PT. BLOOD VERIFIED WITH FRANCIS LYLE. PRE TRANSFUSION VITAL SIGNS TAKEN WILL CONTINUE TO CHECK VITAL SIGNS AND ASSESS FOR ANY ADVERSE EFFECTS DURING TRANSFUSION.
[2020-12-04 01:30] VITALS: BP 111/66
[2020-12-04 02:00] VITALS: BP 107/69
[2020-12-04 06:47] LABS: BASOPHILS # (AUTO) 0.1 K/uL (0.0-0.2); BASOPHILS % (AUTO) 0.7 % (0.0-2.0); EOSINOPHILS % (AUTO) 0.2 % (0.0-6.0); HEMOGLOBIN 7.3 g/dL (13.5-17.5); LYMPHOCYTES # (AUTO) 0.7 K/uL (0.8-4.8); LYMPHOCYTES % (AUTO) 8.1 % (20.0-44.0); MEAN CORPUSCULAR HGB CONC 36 g/dl (31.0-36.0); MEAN CORPUSCULAR VOLUME 100 fL (80-96); MONOCYTES # (AUTO) 0.3 K/uL (0.1-1.30); NEUTROPHILS # (AUTO) 7.2 K/uL (1.8-8.9); PLATELET COUNT (AUTO) 87 K/uL (150-450); RED BLOOD CELL COUNT(AUTO) 2.03 MIL/uL (4.5-6.0); WHITE BLOOD COUNT (AUTO) 8.3 K/uL (4.3-11.0)
--- NOTE | 2020-12-04 06:47 | NUR ---
RN CLOSING NOTES PATIENT IS ALERT AND ORIENTED X 3-4. PATIENT IS ON ROOM AIR. PATIENT IN NO APPARENT RESPIRATORY DISTRESS NOTED. NO COMPLAINED OF PAIN NOTED AT THIS TIME. IV ACCESS AT RIGHT UPPER ARM PICC AND RIGHT FOREARM # 18 G PATENT AND INTACT. ALL DUE MEDICATIONS WAS GIVEN.N S/P BLOOD TRANSFUSION. SAFETY PRECAUTIONS WAS IN PLACED. BED IN LOWEST POSITION AND LOCKED. SIDE RAILS UP X2. CALL LIGHT WITHIN REACH HOB ELEVATED FOR ASPIRATION PRECAUTIONS. WILL CONTINUE TO MONITOR.
[2020-12-04 06:51] LABS: BILIRUBIN,TOTAL 16.8 mg/dL (0.2-1.0); CALCIUM, SERUM 8.7 mg/dL (8.5-10.1); CREATININE 2.6 mg/dL (0.6-1.3); MAGNESIUM 1.7 mg/dL (1.8-2.4); TOTAL PROTEIN, SERUM 7.6 g/dL (6.4-8.2)
[2020-12-04 07:08] LABS: ALBUMIN 1.3 g/dL (3.4-5.0)
[2020-12-04 07:50] LABS: HEMATOCRIT 20 % (39-51)
[2020-12-04 08:00] VITALS: BP 104/67
[2020-12-04] MEDS: FUROSEMIDE 40 MG TABLET PO SCH ×2 (09:00→17:00)
[2020-12-04] MEDS: MIDODRINE HCL (5MG) 5 MG TABLET PO SCH ×3 (09:23→16:49)
[2020-12-04] MEDS: RIFAXIMIN 550 MG TABLET PO SCH ×2 (09:23→16:49)
[2020-12-04] MEDS: THIAMINE HCL 100 MG TABLET PO SCH (09:23)
[2020-12-04] MEDS: SPIRONOLACTONE 25 MG TABLET PO SCH ×2 (09:23→17:00)
[2020-12-04] MEDS: PANTOPRAZOLE 40 MG VIAL IV SCH ×2 (09:23→16:49)
[2020-12-04] MEDS: FOLIC ACID 1 MG TABLET PO SCH (09:23)
[2020-12-04] MEDS: LACTULOSE 10 G/15 ML UDC (PYXIS) PO SCH ×4 (09:23→17:00)
--- NOTE | 2020-12-04 09:42 | NUR ---
RN MS NOTES PT IN BED, ASLEEP, EASY TO AROUSE, ALERT AND ORIENTED, NO COMPLAINT OF PAIN OR ANY DISCOMFORT, ABLE TO AMBULATE TO THE BATHROOM WITH SLOW AND STEADY GAIT, CALL LIGHT WITHIN REACH, NEEDS ATTENDED.
[2020-12-04] MEDS ORDERED: ZINC SULFATE 220 MG CAPSULE PO SCH (10:30)
[2020-12-04 16:05] VITALS: BP 105/58
[2020-12-04 16:49] VITALS: BP 105/58
--- NOTE | 2020-12-04 18:16 | NUR ---
RN MS NOTES PT IN BED, AWAKE, ALERT, RESTING, PM MEDS GIVEN, PT REFUSED LACTULOSE, AT BEDSIDE, CALL LIGHT WITHIN REACH, PT SEEN BY PHYSICAL THERAPY, ABLE TO AMBULATE WITH A WALKER, NEEDS ATTENDED, ENCOURAGE INCREASED PO INTAKE, ALL NEEDS ATTENDED.
--- NOTE | 2020-12-04 20:55 | NUR ---
RN NOTES PATIENT WENT AMA AT 2029, EXPLAINED TO PATIENT THAT HOSPITAL HAS NO LIABILITY WHEN DISCHARGE, SIGNED DOCUMENT, AT THE BEDSIDE, WILL TAKE PATIENT HOME. NOTIFIED DR. AQUINO. PICC LINE AND PERIPHERAL LINES REMOVED, NO BLEEDING, SECURED WITH DRESSING. ALL BELONGINGS GIVEN TO PATIENT, LEFT WITH IN PRIVATE CAR.
[2020-12-04] MEDS ORDERED: Magnesium 1GM/D5W 100ML PREMIX 100 ML IV SCH (22:00)
== END 2020-12-04 20:30 | disposition left against medical advice (07) | DRG 432 ==
LOC: ER 19:42 → TRANSITION 11-24 00:25 → TELE 11-24 06:29 → ICU 11-24 18:00 → MED 11-28 18:42
PROVIDERS: ADMIT Hospitalist; ATTEND Nurse Practitioner Family
PROC: 30233N1 Transfusion of Nonautologous Red Blood Cells into Peripheral Vein, Percutaneous Approach (ICD-10-PCS; 2020-11-23)
PROC: 06L38CZ Occlusion of Esophageal Vein with Extraluminal Device, Via Natural or Artificial Opening Endoscopic (ICD-10-PCS; principal; 2020-11-24)
PROC: 02HV33Z Insertion of Infusion Device into Superior Vena Cava, Percutaneous Approach (ICD-10-PCS; 2020-11-25)
PROC: 30233K1 Transfusion of Nonautologous Frozen Plasma into Peripheral Vein, Percutaneous Approach (ICD-10-PCS; 2020-11-27)
PROC: 0W993ZZ Drainage of Right Pleural Cavity, Percutaneous Approach (ICD-10-PCS; 2020-11-29)
DX: K70.31 Alcoholic cirrhosis of liver with ascites (principal); I85.11 Secondary esophageal varices with bleeding; E43 Unspecified severe protein-calorie malnutrition; N17.0 Acute kidney failure with tubular necrosis; K76.7 Hepatorenal syndrome; K76.6 Portal hypertension; D62 Acute posthemorrhagic anemia; J90 Pleural effusion, not elsewhere classified; J98.11 Atelectasis; D68.9 Coagulation defect, unspecified; E86.0 Dehydration; D69.6 Thrombocytopenia, unspecified; K70.40 Alcoholic hepatic failure without coma; Z20.822 Contact with and (suspected) exposure to COVID-19; K31.89 Other diseases of stomach and duodenum; Z79.899 Other long term (current) drug therapy; E83.42 Hypomagnesemia; E87.6 Hypokalemia; E80.6 Other disorders of bilirubin metabolism; H54.62 Unqualified visual loss, left eye, normal vision right eye; F10.10 Alcohol abuse, uncomplicated; Y90.0 Blood alcohol level of less than 20 mg/100 ml
CPT/HCPCS: 36410; 36415; 70450-TC; 71045-TC; 80048-TC; 80053-TC; 80061-TC; 80076-TC; 81001; 82140-TC; 82570-TC; 83540-TC; 83735-TC; 83880; 84100-TC; 84132-TC; 84300-TC; 84443-TC; 84484-TC; 85025-TC; 85610-TC; 85730-TC; 86850-TC; 87081-TC; 87086-TC; 97112-TC; 97116-TC; 97530-TC; A6253; C9113; C9803; G0378; G0480; J0330; J0696; J1940; J2354; J2405; J2543; J2704; J3430; J3475; J3480; J3490; J7030; J7040; J7050; J7060; P9016; P9017